=== PATIENT | female | born 1940 | race Caucasian/White ===

== ENCOUNTER 2023-12-19 18:41 | Inpatient (IN) | payer OTHER, SELFPAY ==
[2023-12-19 15:13] VITALS: BP 150/59
--- NOTE | 2023-12-19 15:40 | ED.GENMED ---
History of Present Illness
General
Chief Complaint: Musculo-Skeletal Complaint
Time Seen by Provider: 12/19/23 15:24
Travel History
Have you had any contact with someone who has COVID-19?: No
Do you have any symptoms of coronavirus? Fever > 100 degrees, chills, cough, shortness of breath, sore throat, loss of taste or smell, muscle aches, or headache?: No
History of Present Illness
History of Present Illness:
83-year-old female with history of chronic lymphedema presents to the emergency department for evaluation of worsening redness and pain associated with the left lower extremity. She has a history of recurrent cellulitis to this lower extremity.
Was admitted in July for the same. Denies any fevers or chills. She is been following as an outpatient with wound care and podiatry and states she is supposed to undergo an outpatient 'Doppler ultrasound' due to concern for peripheral arterial
disease.
Past History
Past History
ED Past Medical History: Cancer (thyroid CA), HTN, Hypercholesterolemia, Renal failure (Renal insufficiency), Psychiatric (Anxiety, Panic disorder) and Other (Polio, DVT, anemia, Chronic back pain., C-diff, lymphedema, Bowel obstruction,
Diverticulitis, Cellulitis, )
ED Past Surgical History: Appendectomy, Cholecystectomy, Gynecological ( total Hysterectomy), Orthopedic (Right total knee replacement) and Other (Thyroidectomy)
Social History
Tobacco: Non-smoker
Alcohol: None
Drug: None
Personal:
Living: with family
Employment: Not employed
Family History
Family History: Hypertension
Review of Systems
Review of Systems
Allergies reviewed?: Yes
All Other Systems: ROS reviewed and negative except as documented in HPI and ROS
Phy Exam
Physical Exam
Physical Exam:
GEN: Well appearing, NAD, WDWN
HEENT: Oral mucosa moist, no scleral icterus
Cardiac: Regular rate
Lung: No respiratory distress, no tachypnea
MSK: No gross deformity or injuries
Skin: Good color, no pallor or jaundice. Massive edema of the left lower extremity from the mid thigh through the foot. There is significant erythema of the lower extremity and an excoriated wound to the lateral lower leg with serosanguineous
weeping discharge
Neuro: AO x3, moves all extremities freely
Psych: Calm, cooperative
Course
Orders/Labs/Results
Orders:
Orders
12/19/23 15:40
Venous Doppler Lwr Ext Left [US Perip Venous LOWER Ext LT] Urgent
Comment:
Reason For Exam: LLE edema/pain
12/19/23 15:52
HYDROmorphone [Dilaudid] 0.5 mg IV NOW STA
12/19/23 15:58
Complete Blood Count/With Diff Urgent
Comprehensive Metabolic Panel Urgent
12/19/23 18:06
CeFAZolin 2 GRAM [Ancef] 2 grams in 10 ml IV NOW
Abnormal Lab Results
12/19/23
15:58
RBC 3.54 L 10^6/uL
(4.20-5.40)
Hgb 10.0 L g/dL
(12.0-16.0)
Hct 31.5 L %
(37.0-47.0)
MCHC 31.7 L g/dL
(33.0-37.0)
RDW 15.3 H %
(11.5-14.5)
MPV 11.1 H fL
(7.4-10.4)
Absolute Lymphs (auto) 0.8 L 10^3/uL
(1.2-3.4)
Lymphocytes % 12.6 L %
(20.5-51.1)
Chloride 109 H mmol/L
(98-107)
Carbon Dioxide 21 L mmol/L
(22-30)
BUN 26 H mg/dl
(7-17)
Creatinine 1.4 H mg/dL
(0.6-1.0)
Glucose 107 H mg/dl
(70-99)
12/19/23 15:58
12/19/23 15:58
Vital Signs
Initial and Last Documented VS:
Initial Vital Signs
Temp Pulse Resp BP Pulse Ox
97.5 F 69 18 150/59 100
12/19/23 15:13 12/19/23 15:13 12/19/23 15:13 12/19/23 15:13 12/19/23 15:13
Last Documented Vital Signs
Temp Pulse Resp BP Pulse Ox
97.5 F 69 18 158/62 95
12/19/23 15:13 12/19/23 15:13 12/19/23 15:13 12/19/23 16:52 12/19/23 16:52
MDM/Problems Addressed
MDM/Problems Addressed:
Unclear if truly infected, however marked edema with new pain is suspicious for superimposed infectious etiology. Tolerated cefazolin in the past
*Critical Care Note
Total Time (30-74mins, 75-104mins- exclusive of procedures): Not Applicable
ED Attending Note
-
Portions of this chart may have been created with voice recognition software.� Occasional wrong word or��sound alike� substitutions may have occurred due to the inherent limitations of voice recognition software.
Discharge Plan
Departure
Patient Disposition: Admit
Date of Disposition: 12/19/23
Time of Disposition: 17:53
Presentation/result/management discussed w/ accepting MD/DO: Hospitalist
Discharge Problem:
Cellulitis of left leg, Lymphedema
Prescriptions:
No Action
lovastatin 40 MG tablet
40 mg PO QPM
dexlansoprazole [Dexilant] 30 MG capsule,biphase delayed releas
60 mg PO QPM
hydralazine 10 MG tablet
10 mg PO TID
carvedilol [Coreg] 25 MG tablet
25 mg PO BID
clonidine HCl 0.3 MG tablet
0.3 mg PO TID
furosemide 40 MG tablet
40 mg PO DAILYPRN PRN (Reason: swelling)
levothyroxine 100 MCG tablet
100 mcg PO DAILY AT 0700
ferrous sulfate 325 mg (65 mg iron) Tablet
325 mg PO DAILY
lorazepam 1 mg tablet
1 mg PO HS PRN (Reason: sleep/anxiety)
Patient Comments:
07/29/2023: last filled 06/03/23, [facility]
losartan 100 mg tablet
100 mg PO DAILY
cholecalciferol (vitamin D3) [Vitamin D3] 125 mcg (5,000 unit) Tablet
125 mcg PO DAILY
cephalexin 500 mg capsule
500 mg PO QID 7 Days Qty: 28 0RF
Probiotic 3 billion cell capsule
3,000 mmu cells PO DAILY Qty: 30 0RF
gabapentin 100 mg Capsule
100 mg PO HS Qty: 30 0RF
Referrals:
Joseph Haskins DO [Family Provider] -
Interventions
Interventions:
*Risk Screen - Suicide Last Done: 12/19/23 15:04
*General Assessment Last Done: 12/19/23 15:04
*Neglect/Abuse Screening Last Done: 12/19/23 15:04
*ED COVID-19 Vaccine History Last Done: 12/19/23 15:04
Discharge Date and Time
Print Language: LUXEMBOURGISH
[2023-12-19] MEDS: DILAUDID 0.5 MG IV (16:05)
[2023-12-19 16:06] LABS: % Basophils 0.5 % (0-2); % Eosinophils 2.6 % (0-6); % Immature Granulocytes 0.5 % (0-0.5); % Lymphocytes 12.6 % (20.5-51.1); % Monocytes 8.8 % (1.7-9.3); Absolute Eosinophils 0.2 10^3/uL (0-0.7); Absolute Lymphocytes 0.8 10^3/uL (1.2-3.4); Absolute Monocytes 0.6 10^3/uL (0.1-0.6); Hematocrit 31.5 % (37.0-47.0); Mean Corp Hgb Conc. 31.7 g/dL (33.0-37.0); Mean Corpuscular Hgb 28.2 pg (27.0-31.0); Mean Platelet Volume 11.1 fL (7.4-10.4); Nucleated Red Blood Cells % 0 %; Platelet Count 235 10^3/uL (130-400); Red Blood Cell Count 3.54 10^6/uL (4.20-5.40); Red Cell Dist. Width 15.3 % (11.5-14.5); White Blood Cell Count 6.6 10^3/uL (4.8-10.8)
[2023-12-19 16:28] LABS: ALT (SGPT) < 10 U/L (0-35); AST (SGOT) 17 U/L (14-36); Albumin 3.8 g/dl (3.5-5.0); Alkaline Phosphatase 97 U/L (38-126); Blood Urea Nitrogen 26 mg/dl (7-17); Calcium 9.4 mg/dl (8.4-10.2); Carbon Dioxide 21 mmol/L (22-30); Chloride 109 mmol/L (98-107); Glucose 107 mg/dl (70-99); Potassium 4.3 mmol/L (3.5-5.1); Sodium 141 mmol/L (135-145); Total Bilirubin 0.5 mg/dl (0.2-1.3); Total Protein 6.6 g/dl (6.3-8.2); eGFR 37.33
[2023-12-19 16:52] VITALS: BP 158/62
--- NOTE | 2023-12-19 17:57 | HPS.HSE ---
Family Physician
-
Family Physician: Joseph Haskins
Chief Complaint
History of Present Illness
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
obstruction, diverticulitis, thyroid CA status post thyroidectomy
Impression/plan:
Admit to MedSurg
#Cellulitis left lower extremity
#Chronic left lower extremity lymphedema
Hx LLE DVT
-IV Ancef
-Follow CBC
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
-PT/OT/case management consult
History C. difficile x 2 prior episodes
-Continue Florastor
Essential HTN
-Continue FOUNTAIN MANAGER losartan, hydralazine, Coreg, as needed clonidine
Hypothyroidism
-Continue FOUNTAIN MANAGER Synthroid
Anxiety/panic disorder Hx
Chronic back pain
Other PMH:
History of bowel obstruction
Diverticulitis Hx
Hx thyroid CA status post thyroidectomy
DVT prophylaxis
Subcu Lovenox
Full code
Medical History
Past Medical History
Past Medical History: Reports Other
Additional Past Medical History:
chronic left lower leg lymphedema
cellulitis left lower extremity
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
essential HTN
anxiety/panic disorde
hypothyroidism
chronic back pain
history of bowel obstruction
diverticulitis
thyroid CA status post thyroidectomy
Past Surgical History: Reports Other
Additional Past Surgical History:
thyroid CA status post thyroidectomy
Allergies / Home Medications
Allergies reflects when Allergies were last updated in [employer].
Home Medications with original date entered in [employer]
Physical Exam
Vital Signs
Vital Signs
Temp Pulse Resp BP Pulse Ox
97.5 F 69 18 158/62 95
12/19/23 15:13 12/19/23 15:13 12/19/23 15:13 12/19/23 16:52 12/19/23 16:52
Laboratory Results
-
12/19/23 15:58
12/19/23 15:58
Laboratory Results
Total Bilirubin 0.5 mg/dl (0.2-1.3) 12/19/23 15:58
AST 17 U/L (14-36) 12/19/23 15:58
ALT < 10 U/L (0-35) 12/19/23 15:58
Alkaline Phosphatase 97 U/L (38-126) 12/19/23 15:58
Impression/Plan
-
IMPRESSION:
PLAN:
--- NOTE | 2023-12-19 18:17 | HPS.HSE ---
Family Physician
-
Family Physician: Joseph Haskins
Chief Complaint
-
Left leg weeping and tenderness for few weeks
History of Present Illness
This is a 83-year-old female came from home. Patient is accompanied by her son. Patient complained of left leg getting more swollen with weeping. She also developed more tenderness than usual. She has left lower extremity lymphedema and she has
chronic wound on lateral side of the lower extremity. She gets visiting nurse visit every week. Last visit by nurse advised her to go to the emergency room but she declined. Patient reported that her podiatristDr. Gilman recommended Doppler
ultrasound and was concerned about her left lower extremity 2 weeks ago upon an office visit. Patient denied fever or chills. She reported color of fluid weeping changing to green/yellow in last week or so.
In the emergency room, she did not have leukocytosis or fever.
Medical History
Past Medical History
Past Medical History: Reports Other (HTN, Hypercholesterolemia , prior C. Diff, post polio syndrome, lymphedema, ambulatory dysfunction)
Past Surgical History: Reports Other (No recent major surgery)
Social History
Tobacco: Non-smoker
Alcohol: None
Drug: None
Personal:
Living: With Family
Family History
Family History: Not pertinent
Allergies / Home Medications
Allergies reflects when Allergies were last updated in [employer].
Home Medications with original date entered in [employer]
Allergy/Medication List:
Allergies
Allergy/AdvReac Type Severity Reaction Status Date / Time
clindamycin Allergy c Verified 12/19/23 15:07
diff--recurrent
Penicillins Allergy Hives A Verified 12/19/23 15:07
CHILD,
TOLERATES
CEFEPIME,
KEFLEX
Sulfa (Sulfonamide Allergy A LONG Verified 12/19/23 15:07
Antibiotics) TIME AGO
sulfadiazine Allergy Unknown Verified 12/19/23 15:07
'I am allergic to every Allergy Easily Uncoded 12/19/23 15:07
antibiotic' gets C-diff
Home Medications
lovastatin 40 mg tablet 40 mg PO QPM High cholesterol 10/03/13
dexlansoprazole 30 mg capsule,biphase delayed release (Dexilant) 60 mg PO QPM Gastrointestinal issue 09/24/18
carvedilol 25 mg tablet (Coreg) 25 mg PO BID Blood pressure 05/30/20
clonidine HCl 0.3 mg tablet 0.3 mg PO BID 05/30/20
hydralazine 10 mg tablet 10 mg PO BID Blood pressure 05/30/20
furosemide 40 mg tablet 40 mg PO DAILYPRN PRN swelling 04/09/21
levothyroxine 100 mcg tablet 100 mcg PO DAILY AT 0700 Thyroid 04/09/21
losartan 100 mg tablet 100 mg PO DAILY 07/29/23
acetaminophen 325 mg tablet (Tylenol) 650 mg PO Q4HPRN PRN mild pain 12/19/23
aspirin 81 mg tablet,delayed release 81 mg PO QPM 12/19/23
cholecalciferol (vitamin D3) 25 mcg (1,000 unit) tablet (Vitamin D3) 25 mcg PO DAILY 12/19/23
docusate sodium 100 mg capsule (Colace) 100 mg PO BIDPRN PRN constipation 12/19/23
folic acid 400 mcg tablet 0.4 mg PO DAILY 12/19/23
magnesium hydroxide 400 mg/5 mL oral suspension (Milk of Magnesia) 2,400 mg PO DAILYPRN PRN constipation 12/19/23
Review of Systems
-
History Source: Patient
A 12 point ROS was completed and negative except as noted: Yes
Constitutional: Denies Fever or Chills
EENT: Denies Sore Throat
Respiratory: Denies Hemoptysis
Cardiac: Denies Chest Pain
Abdomen/GI: Denies Abdominal Pain
: Denies Dysuria
Musculoskeletal: Reports Other (Left lower extremity swelling, tenderness, weeping)
Skin: Denies Itching
Neurological: Denies Headache
Endocrine: Denies Temp Intolerance
Hematologic/Lymphatic: Denies Bruising
Psych: Denies Panic Disorder
Physical Exam
Vital Signs
Vital Signs
Temp Pulse Resp BP Pulse Ox
97.5 F 69 18 158/62 95
12/19/23 15:13 12/19/23 15:13 12/19/23 15:13 12/19/23 16:52 12/19/23 16:52
Physical Exam
General: No Apparent Distress and Comfortable
HEENT: Moist mucous membranes and Atraumatic
Respiratory: Clear
Cardiac: S1/S2 and Regular Rhythm
GI: Soft and Non Tender
Rectal: No Maroon Stools
Genito-urinary: No costovertebral tender; No Ponce
Musculoskeletal: No Cyanosis and Edema, Left Lower Extremity (With redness, weeping, lymphedema)
Skin: Warm and Dry
Neuro: AO x 3; No Slurred Speech or Facial Droop
Psych: Calm and Intact Judgment/Insight
Laboratory Results
-
12/19/23 15:58
12/19/23 15:58
Laboratory Results
Total Bilirubin 0.5 mg/dl (0.2-1.3) 12/19/23 15:58
AST 17 U/L (14-36) 12/19/23 15:58
ALT < 10 U/L (0-35) 12/19/23 15:58
Alkaline Phosphatase 97 U/L (38-126) 12/19/23 15:58
Impression/Plan
-
83 years old female presented with increasing left lower extremity swelling, weeping, tenderness
#Weeping cellulitis of left lower extremity
She reported increasing swelling, weeping, tenderness. Chronic erythematous leg.
Met the patient to the hospital
Start the patient on IV Ancef. History of C. difficile in the past. Will do oral vancomycin prophylactically with a probiotic
Blood culture x 2
Monitor temperature curve .no leukocytosis
Patient was concerned about tenderness. She requested oxycodone for pain control
Will continue with Tylenol [id number]
Consult wound care nurse, elevate the leg and Praveen wrap
Appreciate ID input
# Acute kidney injury.
Patient has underlying chronic kidney disease stage II from her previous GFR.
Creatinine 1.4 on admission. Previous creatinine 1.0 in July 2023
Will give mild IV fluid
Do bladder scan to check for retention
Monitor BMP
# Chronic left lower extremity/left foot lymphedema
Patient requested to reach out to her retail selling specialist Dr. De La Fuente
Will check Doppler arterial ultrasound
# HX post polio syndrome chr LLEx weakness--PT/OT
Patient uses walker at home
# Essential HTN-- cont. DEMURRAGE AGENT� losartan, hydralazine, Coreg
# Hypothyroid-- DEMURRAGE AGENT Synthroid
#DVT proph
code status -- FULL CODE
Total time spent to see the patient, examine the patient on the floor, review data and lab results, discuss treatment plan with patient, ER doctor, nursing staff around 75 minutes
[2023-12-19] MEDS: ANCEF 10 IV (18:55)
[2023-12-19 19:15] VITALS: BP 172/77; BMI 31.2
--- NOTE | 2023-12-19 19:30 | PTCARENOTE ---
Received patient from ED. c/o 05/03 pain on Lt lower leg, crying out loud with pain. DEWEY Suarez made aware. see MAR for orders.
[2023-12-19] MEDS: ROXICODONE 5 MG PO ×2 (19:33→23:27)
[2023-12-19] MEDS: TYLENOL 1000 MG PO (20:14)
[2023-12-19] MEDS: COREG 25 MG PO (20:15)
[2023-12-19] MEDS: APRESOLINE 10 MG PO (20:15)
[2023-12-19] MEDS: CATAPRES 0.299999999999999989 MG PO (20:17)
[2023-12-19] MEDS: NSS 1000 IV (20:17)
[2023-12-19] MEDS: FIRVANQ 125 MG PO (20:18)
[2023-12-19] MEDS: HEPARIN 5000 UNITS SC (20:27)
[2023-12-19] MEDS: PROTONIX 40 MG PO (20:47)
[2023-12-19 23:30] VITALS: BP 112/49
[2023-12-20] MEDS: ANCEF 5 IV ×3 (00:08→16:35)
--- NOTE | 2023-12-20 03:00 | PTCARENOTE ---
Patient's has a 'bottle with multiple Meds'. Patient stated its a mix of 'Advil/Tylenol/Dexilant/ tranquilizer'. Patient couldn't remember the name of the sleeping med. sent to pharmacy. As per pharmacy, patient has 8 lorazepam tabs. will keep in
the pharmacy until discharge. updated patient.
--- NOTE | 2023-12-20 03:30 | PTCARENOTE ---
Patient c/o left lower leg pain 10/10 and asking for Tylenol with oxy. Yahir PALOMO made aware. will give 0800am Tylenol now as per advise.
[2023-12-20] MEDS: ROXICODONE 5 MG PO ×4 (03:31→16:34)
[2023-12-20] MEDS: TYLENOL 1000 MG PO ×3 (03:32→21:28)
[2023-12-20] MEDS: SYNTHROID 100 MCG PO (05:30)
[2023-12-20 07:25] LABS: Blood Urea Nitrogen 21 mg/dl (7-17); Calcium 8.4 mg/dl (8.4-10.2); Carbon Dioxide 20 mmol/L (22-30); Chloride 112 mmol/L (98-107); Estimated Creatinine Clearance 39 ml/min; Glucose 100 mg/dl (70-99); Potassium 4.1 mmol/L (3.5-5.1); Sodium 140 mmol/L (135-145); eGFR 49.86
[2023-12-20 07:29] VITALS: BP 136/56
[2023-12-20] MEDS: VISBIOME 2 CAP PO (08:15)
[2023-12-20] MEDS: COREG 25 MG PO ×2 (08:16→19:51)
[2023-12-20] MEDS: CATAPRES 0.299999999999999989 MG PO ×2 (08:16→19:51)
[2023-12-20] MEDS: DESENEX/MITRAZOL/ZEASORB 1 APPLIC TOPICAL ×2 (08:20→19:51)
[2023-12-20] MEDS: HEPARIN 5000 UNITS SC ×2 (08:23→19:51)
[2023-12-20] MEDS: APRESOLINE 10 MG PO ×2 (09:17→19:51)
[2023-12-20] MEDS: FIRVANQ 125 MG PO ×2 (09:26→19:51)
--- NOTE | 2023-12-20 11:23 | CON.ID ---
Consultation
-
Date/Time Consultation Requested: 12/19/23 19:11
Date/Time Consultation Performed: 12/20/23 11:23
Requesting Provider: Dr Clark
Performing Provider: Dr Barcenas
Reason for Consultation: Cellulitis LLE
Chief Complaint / Past History
Chief Complaint
Left leg weeping and tenderness for few weeks
History of Present Illness
Ms Centeno is an 83 year old female with history of ambulatory dysfunction with lympehdema, Post-polio syndrome with LLE weakness, C difficile who presented here yesterday for a chronic wound on the L lower extremity which has developed greenish
drainage in the last week. Denies fevers/chills.
On INSOLVENCY PRACTITIONER protonix with history notable for GERD.
Since arrival here she has been afebrile, bp stable, wbc 6.6, hgb 10.0, plt 235, no left shift, cr 1.1, t bili 0.5, ast 17, alt <10, alk phos 97, US of the lower extremity - no DVT; there is edema. Patient currently on cefazolin and oral
vancomycin. QTc 420. ID is consulted for assistance with management.
Past History
Additional Past Medical History:
HTN, Hypercholesterolemia , prior C. Diff, post polio syndrome, lymphedema, ambulatory dysfunction
Past Surgical History: None
Allergy History:
Reviewed stated allergy history as below:
clindamycin Allergy (Verified 12/19/23 15:07)
c diff--recurrent
Penicillins Allergy (Verified 12/19/23 15:07)
Hives A CHILD, TOLERATES CEFEPIME, KEFLEX
Sulfa (Sulfonamide Antibiotics) Allergy (Verified 12/19/23 15:07)
A LONG TIME AGO
sulfadiazine Allergy (Verified 12/19/23 15:07)
Unknown
'I am allergic to every antibiotic' Allergy (Uncoded 12/19/23 15:07)
Easily gets C-diff
Medications Reviewed: Yes
Social History
Tobacco: Non-Smoker
Alcohol: None
Drug: None
Family History
Family History: Not Pertinent
Review of Systems
Review of Systems
General: Negative Fever or Chills
All systems: All other systems were reviewed and were negative
Vital Signs
Temp Pulse Resp BP Pulse Ox
98.6 F 69 18 136/56 95
12/20/23 07:29 12/20/23 08:16 12/20/23 07:29 12/20/23 08:16 12/20/23 07:29
Physical Exam
Physical Exam
Constitutional: No Acute Distress
Cardiovascular: Regular Rate and S1/S2; Negative Murmur or Rub
Pulmonary: Clear and Symmetric; Negative Wheezes, Rales or Rhonchi
Gastrointestinal: Soft, Non Tender, Non Distended and Normal Bowel Sounds
Musculoskeletal: Other (uncontrolled lymphedema of the L leg with chronic lichenification)
Skin: Warm and Dry; Negative Rash or Jaundice
Wound: Other (maceration of the posterior L leg; DTI of the L heel extending both ventrally and posteriorly )
Psychological: Calm
Lab / Diagnostic Study Results
12/19/23 15:58
12/20/23 06:29
Abs Immat Gran (auto) 0.0 10^3/uL (0-0.05) 12/19/23 15:58
Absolute Neuts (auto) 5.0 10^3/uL (1.4-6.5) 12/19/23 15:58
Absolute Lymphs (auto) 0.8 10^3/uL (1.2-3.4) L 12/19/23 15:58
Absolute Monos (auto) 0.6 10^3/uL (0.1-0.6) 12/19/23 15:58
Absolute Basos (auto) 0.0 10^3/uL (0-0.2) 12/19/23 15:58
Immature Gran % 0.5 % (0-0.5) 12/19/23 15:58
Neutrophils % 75.0 % (42.2-75.2) 12/19/23 15:58
Lymphocytes % 12.6 % (20.5-51.1) L 12/19/23 15:58
Monocytes % 8.8 % (1.7-9.3) 12/19/23 15:58
Eosinophils % 2.6 % (0-6) 12/19/23 15:58
Basophils % 0.5 % (0-2) 12/19/23 15:58
Microbiology Results
Micro:
12/19/23 19:31 Blood Culture - Pending
Blood/Venous
12/19/23 20:11 Blood Culture - Pending
Blood/Venous
12/19/23 22:34 MRSA Screen - Pending
Nose
Assessment / Plan
Cellulitis
Chronic Wound
Post polio syndrome with chronic uncontrolled lymphedema
Chronic back pain
DTI heel
Multiple reported adverse effect to antibiotics, allergy to penicillin
- blood cultures x2 in progresses
- note history of greenish drainage however I do not appreciate any on exam
- agree with cefazolin at this time
- if edema cannot be controlled then resolution may be very slow; I doubt that she will really tolerate either compression or higher elevation today - the skin on the posterior calf is macerated and painful; the DTI is on both the ventral and
posterior heel
- 'I would rather than loose my leg,' expresses great frustration that the wounds are not healing. Expressed that the lymphedema is primary, wounds and infections are secondary. The lymphedema cannot be cured but with management she may need
less healthcare
H/o Recurrent C difficile
- last documented episode on file here was 2011
- stop PPI that was prescribed for GERD - it is associated with higher risk of relapse, if relapse of symptoms then could switch to famotidine
- emphasized need to eat fruits and vegetables (dietary fiber) to support healthy gut biome - admits she doesnt eat vegetables
- agree with probiotics
- BID oral vancomycin while on systemic antibiotics
- if relaspe then we will discuss newer treatments
--- NOTE | 2023-12-20 12:03 | W.PN.HOSP.TC ---
Today's Communication/Plan
-
.
Assessment / Plan
Assessment / Plan
Physical Exam
General: No Apparent Distress and Comfortable
HEENT: Moist mucous membranes and Atraumatic
Respiratory: Clear
Cardiac: S1/S2 and Regular Rhythm
GI: Soft and Non Tender
Rectal: No Maroon Stools
Genito-urinary: No costovertebral tender; No Ponce
Musculoskeletal: No Cyanosis and Edema, Left Lower Extremity (tenderness, swelling)
Skin: Warm and Dry
Neuro: AO x 3; No Slurred Speech or Facial Droop
Psych: Calm and Intact Judgment/Insight.
83 years old female presented with increasing left lower extremity swelling, weeping, tenderness
#Weeping cellulitis of left lower extremity
Same pain, she will go for Doppler study as recommended by her fixture maker
No fevers
c/w IV Abx
Continue to elevate the leg and Praveen wrap
Appreciate ID and wound care input
# Acute kidney injury.
Patient has underlying chronic kidney disease stage II from her previous GFR.
Creatinine 1.4 on admission. Previous creatinine 1.0 in July 2023, creatinine is down to 1.1 post IVF
Monitor BMP
# Chronic left lower extremity/left foot lymphedema
Discussed with Dr. De La Fuente, c/w wound care
Will check Doppler arterial ultrasound
# HX post polio syndrome, chronic LLEx weakness--PT/OT
Patient uses walker at home
# Essential HTN-- cont. PAN SHAKER� losartan, hydralazine, Coreg
# Hypothyroid-- PAN SHAKER Synthroid
#DVT proph
code status -- FULL CODE
Total time spent to see the patient, examine the patient on the floor, review data and lab results, discuss treatment plan with patient, nursing staff around 55 minutes
Anticipated Discharge: > 48 hours
Subjective/Interval History
-
Date of Service: December 20, 2023
She wants to go home
No worsening leg pain
Objective Data
-
Labs:
Laboratory Results
12/20/23
06:29
Sodium 140
Potassium 4.1
Chloride 112 H
Carbon Dioxide 20 L
BUN 21 H
Creatinine 1.1 H
Glucose 100 H
Calcium 8.4
Vital Signs:
Vital Signs
Temp Pulse Resp BP Pulse Ox
98.6 F 69 18 136/56 95
12/20/23 07:29 12/20/23 08:16 12/20/23 07:29 12/20/23 08:16 12/20/23 07:29
I&O
12/19/23 12/20/23 12/21/23
06:59 06:59 06:59
Intake Total 1030 / 1030
Output Total 150 / 150
Balance 880 / 880
--- NOTE | 2023-12-20 13:01 | WOUNDNOTE ---
LEFT LOWER LEG
--- NOTE | 2023-12-20 13:01 | WOUNDNOTE ---
LEFT LATERAL LEG
--- NOTE | 2023-12-20 13:23 | WOUNDNOTE ---
[facility] RN NOTE: Reviewed chart and met with patient. Patient has history of left leg lymphedema. She reports multi-layer compression dressing weekly with VN. Patient admitted with left LE cellulitis, wound and pain. Left leg wound radiates from lateral
to posterior leg and skin is denuded. Left foot with DTI (present on admission). Patient medicated for pain prior to wound care. Wound cleaned with Vashe moistened gauze and covered with Xeroform foam dressing. Left foot off-loaded with pillow under
leg. Patient was in too much pain to turn during assessment. Sacrum to assessed by RN during next position change or transfer. Patient currently on [employer] Accumax. Orders confirmed with hospitalist and RN updated.
--- NOTE | 2023-12-20 15:10 | CM ---
Reviewed chart, patient was not in room therefore called patient's son. Patient's son answered and stated that he could talk. Patient's son stated that patient lives in a one floor condo with one step to enter with her spouse. She uses a walker for
short distances and a w/c for community distances. Patient's spouse assists patient will all of her personal care, bathing, dressing and all ADLs. She can toilet independently. She has a shower chair. Patient's spouse does the majority of the
chicken and fish cleaner, cooking, cleaning and laundry.
Patient does not have VN.
She has been to SNF in the past at [facility].
She has a prescription plan and uses, [facility] in [place] for all of her medications.
Patient's PCP is, Dr. Joseph Haskins.
Patient's son stated that family wants patient to return home when medically stable and not go to a SNF. If PT/OT is indicated they will be agreeable to VN only.
Plan: Case management will continue to follow and assist with discharge planning. Home vrs home with VN services.
[2023-12-20 15:33] VITALS: BMI 31.2
[2023-12-20] MEDS: NSS 1000 IV (15:42)
[2023-12-20 15:45] VITALS: BP 156/65
[2023-12-20] MEDS: ASPIR LOW (ENTERIC COATED) 81 MG PO (16:35)
[2023-12-20 23:00] VITALS: BP 139/57
[2023-12-21] MEDS: MELATONIN 5 MG PO ×2 (00:17→23:32)
[2023-12-21] MEDS: ANCEF 5 IV ×2 (00:18→09:22)
[2023-12-21] MEDS: SYNTHROID 100 MCG PO (05:33)
[2023-12-21] MEDS: ROXICODONE 5 MG PO ×2 (05:36→12:30)
[2023-12-21] MEDS: ZOFRAN 4 MG IV ×2 (06:15→23:33)
--- NOTE | 2023-12-21 06:32 | PTCARENOTE ---
Pt requested 'tranquilizer' at bedtime(normally takes ativan at home). Yahir PALOMO notified and pt med with melatonin. This am pt awake and very anxious-states she wants to go home and feels sick to her stomach. Yahir PALOMO notified and pt med with
zofran for nausea. Stayed with pt and talked to her until she was more calm but she is still anxious. Will continue to monitor.
[2023-12-21 07:30] VITALS: BP 175/77
[2023-12-21] MEDS: VISBIOME 2 CAP PO (08:00)
[2023-12-21] MEDS: COREG 25 MG PO ×2 (08:01→20:51)
[2023-12-21] MEDS: FIRVANQ 125 MG PO ×2 (08:01→20:51)
[2023-12-21] MEDS: APRESOLINE 10 MG PO ×2 (08:01→20:51)
[2023-12-21] MEDS: HEPARIN 5000 UNITS SC ×2 (08:03→20:51)
[2023-12-21] MEDS: TYLENOL 1000 MG PO ×3 (08:04→22:10)
[2023-12-21] MEDS: CATAPRES 0.299999999999999989 MG PO ×2 (08:09→20:51)
[2023-12-21] MEDS: PEPCID 20 MG PO (09:20)
[2023-12-21] MEDS: DESENEX/MITRAZOL/ZEASORB 1 APPLIC TOPICAL ×2 (09:20→20:52)
--- NOTE | 2023-12-21 10:44 | W.PN.HOSP.TC ---
Today's Communication/Plan
-
.
Assessment / Plan
Assessment / Plan
Physical Exam
General: No Apparent Distress and Comfortable
HEENT: Moist mucous membranes and Atraumatic
Respiratory: Clear
Cardiac: S1/S2 and Regular Rhythm
GI: Soft and Non Tender
Rectal: No Maroon Stools
Genito-urinary: No costovertebral tender; No Ponce
Musculoskeletal: No Cyanosis and Edema, Left Lower Extremity (tenderness, much less swelling)
Skin: Warm and Dry
Neuro: AO x 3; No Slurred Speech or Facial Droop
Psych: Calm and Intact Judgment/Insight.
83 years old female presented with increasing left lower extremity swelling, weeping, tenderness
#Weeping cellulitis of left lower extremity
Much less swelling noticed today
No fevers
c/w IV Abx
Continue to elevate the leg and Praveen wrap
Appreciate ID and wound care input
# Hx of C diff
prophylactic Probiotic & oral Vancomycin.
# Left heel pain and non blanchable dark skin, likely pressure injury but no open wound yet
continue to elevate
pt was educated about elevating her leg. She reports that visiting nurse visited once a week and di the dressing. Not sure if pt was doing the appropriate wound care and dressing on her own.
# Acute kidney injury.
Patient has underlying chronic kidney disease stage II from her previous GFR.
Creatinine 1.4 on admission. Previous creatinine 1.0 in July 2023, creatinine is down to 1.1 post IVF
Monitor BMP
# Chronic left lower extremity/left foot lymphedema
Discussed with Dr. De La Fuente, c/w wound care
Doppler did not show critical disease, I recommended OP follow up with vascular.
# HX post polio syndrome, chronic LLEx weakness--PT/OT
Patient uses walker at home
# Essential HTN-- cont. HOME HEALTH ATTENDANT� losartan, hydralazine, Coreg
# Hypothyroid-- HOME HEALTH ATTENDANT Synthroid
#DVT proph
code status -- FULL CODE
Total time spent to see the patient, examine the patient on the floor, review data and lab results, discuss treatment plan with patient, son, nursing staff around 55 minutes
Anticipated Discharge: > 48 hours
Subjective/Interval History
-
Date of Service: December 21, 2023
She wants to go home
no chest pain, no sob
Objective Data
-
Vital Signs:
Vital Signs
Temp Pulse Resp BP Pulse Ox
98.5 F 77 16 175/77 95
12/21/23 07:30 12/21/23 08:09 12/21/23 07:30 12/21/23 08:09 12/21/23 07:30
I&O
12/20/23 12/21/23 12/22/23
06:59 06:59 06:59
Intake Total 1030 / 1030 1320 / 1320
Output Total 150 / 150 350 / 350
Balance 880 / 880 970 / 970
--- NOTE | 2023-12-21 11:52 | PN.CDI ---
Addendum entered and electronically signed by Ye Clark MD 12/21/23 12:06:
Left foot with DTI
I think its already in my note
Original Note:
CDI
- -
CDI:
Physician Documentation Request
Admit Date: 12/19/23 18:41
Dear Doctor Amber,
Please review the following and provide your response in the progress notes.
Clinical Indicators:
- 12/19 Wound note 'Left foot with DTI (present on admission)'
- 12/20 PN 'Chronic left lower extremity/left foot lymphedema'
Physician documentation of the type and location of wounds is required for compliant documentation. Based on the above clinical findings and your assessment, please provide the following in your progress note:
1. Location of the ulcer/wound, including laterality.
2. Type (etiology) of ulcer/wound:
- Diabetic ulcer
- Arterial (ischemic) ulcer
- Traumatic wound
- Venous stasis ulcer
- Pressure (decubitus) ulcer
- Non-healing surgical wound
- Other
- Unable to determine
Use of terms such as suspected, likely, concern for, or probable (associated with a specific diagnosis that is being evaluated, monitored, or treated as if it exists) are acceptable and can be coded in the inpatient setting, when documented at the
time of discharge.
Thank you,
Phoenix Angelo RN
CDI Specialist
Please use your independent medical judgment in providing your response.
*Source: National Pressure Ulcer Advisory Panel (NPUAP)
--- NOTE | 2023-12-21 14:05 | W.PN.ID1 ---
Date of Service
Date of Service: December 21, 2023
Today's Communication
- continue with cefazolin at this time
- MIGDALIA suggestive of multifocal stenoses and aortoiliac inflow disease; consult vascular surgery
- npo at midnight vascular request
- if edema cannot be controlled then resolution may be very slow; I doubt that she will really tolerate either compression or higher elevation today - the skin on the posterior calf is macerated and painful; the DTI is on both the ventral and
posterior heel
- long conversation with patient and adult son, essential that she offloads the left heel, if she develops osteomyelitis of the heel,
- would optimize pain control, ideally would start ranjit wraps as tolerated in the next day or so
Assessment / Plan
Cellulitis
Chronic Wound
Post polio syndrome with chronic, uncontrolled lymphedema
Chronic back pain
DTI heel
Multiple reported adverse effect to antibiotics, allergy to penicillin
- blood cultures x2 in progresses
- continue with cefazolin at this time
- MIGDALIA suggestive of multifocal stenoses and aortoiliac inflow disease; consult vascular surgery
- npo at midnight vascular request
- if edema cannot be controlled then resolution may be very slow; I doubt that she will really tolerate either compression or higher elevation today - the skin on the posterior calf is macerated and painful; the DTI is on both the ventral and
posterior heel
- long conversation with patient and adult son, essential that she offloads the left heel, if she develops osteomyelitis of the heel,
- would optimize pain control, ideally would start ranjit wraps as tolerated in the next day or so
- 'I would rather than loose my leg,' expresses great frustration that the wounds are not healing. Expressed that the lymphedema is primary, wounds and infections are secondary. The lymphedema cannot be cured but with management she may need
less healthcare
- asking about dc, I would not recommend it at this time
H/o Recurrent C difficile
- last documented episode on file here was 2011
- stop PPI that was prescribed for GERD - it is associated with higher risk of relapse, if relapse of symptoms then could switch to famotidine
- emphasized need to eat fruits and vegetables (dietary fiber) to support healthy gut biome - admits she doesnt eat vegetables
- agree with probiotics
- BID oral vancomycin while on systemic antibiotics
- if relapse then we will further discuss newer treatments
Chief Complaint
-: Cellulitis and Other (chronic uncontrolled lymphedema)
Subjective / Review of Systems
afebrile
bp stable
heel resting on the stool on my arrival
anxious
long conversation with patient and son
Vital Signs / Physical Exam
Vital Signs
Vital Signs
Temp Pulse Resp BP Pulse Ox
98.5 F 77 16 175/77 95
12/21/23 07:30 12/21/23 08:09 12/21/23 07:30 12/21/23 08:09 12/21/23 08:34
Physical Exam
Constitutional: No Acute Distress
Cardiovascular: Regular Rate and S1/S2; Negative Murmur or Rub
Pulmonary: Clear and Symmetric; Negative Wheezes or Rales
Gastrointestinal: Soft, Non Tender, Non Distended and Normal Bowel Sounds
Extremities: Other (swelling, erythema of the L leg persists, chronic )
Skin: Warm and Dry; Negative Rash or Jaundice
Objective Data
Lab Data
Lab Results
12/19/23 15:58
12/20/23 06:29
Estimated Creat Clear 39 ml/min 12/20/23 06:29
Total Bilirubin 0.5 mg/dl (0.2-1.3) 12/19/23 15:58
AST 17 U/L (14-36) 12/19/23 15:58
ALT < 10 U/L (0-35) 12/19/23 15:58
Alkaline Phosphatase 97 U/L (38-126) 12/19/23 15:58
Most recent labs reviewed.
Micro Results:
12/19/23 22:34 MRSA Screen - Final
Nose No Methicillin Resistant Staphylococcus aureus isolated.
12/19/23 20:11 Blood Culture - Preliminary
Blood/Venous No Growth in 24 hours- Final report to follow
12/19/23 19:31 Blood Culture - Preliminary
Blood/Venous No Growth in 24 hours- Final report to follow
Care Review
Plan reviewed with: Physician (Dr Reese and Dr Clark - migdalia findings)
[2023-12-21 15:00] VITALS: BP 169/76
--- NOTE | 2023-12-21 16:24 | CM ---
Received notification from [facility] community relations rep that patient wanted to talk to a CM. Met with patient's son who stated that he wanted to see if he could get patient a private room. Spoke with Custom Shop Worker who stated that she would put in request.
[2023-12-21] MEDS: ANCEF 10 IV ×2 (16:57→23:32)
[2023-12-21] MEDS: ASPIR LOW (ENTERIC COATED) 81 MG PO (16:59)
[2023-12-21] MEDS: DULCOLAX 10 MG PO (22:09)
[2023-12-21 23:22] VITALS: BP 127/57
[2023-12-22] MEDS: ROXICODONE 5 MG PO ×2 (03:56→12:06)
[2023-12-22] MEDS: SYNTHROID 100 MCG PO (06:13)
[2023-12-22 07:00] VITALS: BP 192/78
[2023-12-22 07:13] LABS: Hematocrit 27.9 % (37.0-47.0); Hemoglobin 9.3 g/dL (12.0-16.0); Mean Corp Hgb Conc. 33.3 g/dL (33.0-37.0); Mean Corpuscular Hgb 27.9 pg (27.0-31.0); Mean Corpuscular Volume 83.8 fL (81.0-99.0); Mean Platelet Volume 12.1 fL (7.4-10.4); Platelet Count 187 10^3/uL (130-400); Red Blood Cell Count 3.33 10^6/uL (4.20-5.40); Red Cell Dist. Width 15.3 % (11.5-14.5); White Blood Cell Count 4.4 10^3/uL (4.8-10.8)
--- NOTE | 2023-12-22 07:32 | W.PN.UPDATE ---
Update Note
Progress Note Update
Seen and examined with PACKAGE DYE STAND LOADER's. Full consultation to follow. Briefly 83-year-old female with history of hypertension, hyperlipidemia, chronic longstanding left lower extremity lymphedema, history of polio that affected the left lower extremity, who
presents with persistent swelling left calf with excoriation/superficial ulceration of the posterior calf. In addition found to have possible deep tissue injury in the left foot. Patient denies any prior revascularization procedures. She denies
any history of diabetes.
We were asked to evaluate regarding possibility of peripheral arterial disease based on noninvasive imaging.
On exam/she is awake and alert. She is in no acute distress. Breathing is unlabored. Abdomen is soft, nondistended, nontender. Lower extremity with 2+ femoral, popliteal, DP and PT pulses are palpable bilaterally. Relatively equal bilaterally.
Feet are both pink and warm and well-perfused. No rubor. Left posterior calf with superficial excoriation, no rikki overt deep tissue ulcers. Noted in the setting of lymphedema in the left lower extremity. No gross infection but mild cellulitis
surrounding. Left foot is warm, heel with bruised type appearance. No evidence of overt gangrene. No ulceration.
Noninvasive studies reviewed. Bilateral ABIs and TBI's within normal limits. Left lower extremity spectral Doppler waveforms are monophasic throughout left lower extremity.
Plan/ Based on pulse exam, normal MIGDALIA/TBI's, no evidence of significant arterial insufficiency that would preclude wound healing here. Monophasic waveforms throughout the left lower extremity could indicate possible mild common femoral disease or
inflow iliac artery stenosis. However, even if there is (which I am not convinced based on strong pulsations throughout), does not appear to be limiting perfusion at rest based on normal MIGDALIA/TBI's. She should have adequate perfusion for wound
healing. Especially given her mild renal dysfunction, would not pursue enhanced imaging at this point or invasive angiography given low suspicion for this being an ischemic problem. In addition the excoriation areas and the heel do not appear to
be ischemic on exam. Therefore, we rewrapped the left lower extremity after dressing the wounds with Praveen bandage. Recommend continued good compression. Local wound care. Complete course of antibiotics. Heel offloading. And she can follow-up in
the office (we will set her up with appointment) in the next 2 to 4 weeks for close follow-up. If any changes will plan on pursuing angiography. I discussed extensively with the patient. I discussed extensively with her son Marcus over the phone.
--- NOTE | 2023-12-22 07:34 | CON.VAS ---
Consultation
Consultation Request
Performing Provider: Hugh
Reason for Consultation: PAD evaluation
Medical History
-
Chief Complaint: Left lower extremity pain/cellulitis
History of Present Illness:
83-year-old female with past medical history significant for hypertension, hypercholesterolemia, lymphedema admitted for left lower extremity chronic wound with increased drainage/swelling/redness. Patient has visiting nurse weekly who recommended
the ER last week for worsening wound to which patient declined. Patient follows with Dr. Gilman who recommended ultrasound studies as an outpatient. She reported color of fluid weeping changing to green/yellow in last week or so which led to her
ER visit. Patient is noted to also have possible deep tissue injury in the left foot. Patient denies any prior revascularization procedures. She denies any history of diabetes.
We were asked to evaluate regarding possibility of peripheral arterial disease based on noninvasive imaging.
Noninvasive studies reviewed. Bilateral ABIs and TBI's within normal limits. Left lower extremity spectral Doppler waveforms are monophasic throughout left lower extremity.
Patient seen at bedside this a.m. with Dr. Reese.
Past Medical History
Past Medical History: Cancer (thytoid), HTN, Hypercholesterolemia and Other (post polio syndrome, lymphedema, ambulatory dysfunction)
Past Surgical History: Other (Thyroidectomy)
Social History
Tobacco: Non-Smoker
Alcohol: None
Drug: None
Personal:
Living: With Family
Family History
Family History: Reviewed & Not Pertinent
Allergies / Home Medications
Allergy/AdvReac Type Severity Reaction Status Date / Time
clindamycin Allergy c Verified 12/19/23 15:07
diff--recurrent
Penicillins Allergy Hives A Verified 12/19/23 15:07
CHILD,
TOLERATES
CEFEPIME,
KEFLEX
Sulfa (Sulfonamide Allergy A LONG Verified 12/19/23 15:07
Antibiotics) TIME AGO
sulfadiazine Allergy Unknown Verified 12/19/23 15:07
'I am allergic to every Allergy Easily Uncoded 12/19/23 15:07
antibiotic' gets C-diff
�Medication �Instructions �Recorded �Confirmed �Type
lovastatin 40 mg tablet 40 mg PO QPM High cholesterol 10/03/13 12/19/23 History
dexlansoprazole 30 mg 60 mg PO QPM Gastrointestinal issue 09/24/18 12/19/23 History
capsule,biphase delayed release
(Dexilant)
carvedilol 25 mg tablet (Coreg) 25 mg PO BID Blood pressure 05/30/20 12/19/23 History
clonidine HCl 0.3 mg tablet 0.3 mg PO BID Blood Pressure 05/30/20 12/19/23 History
hydralazine 10 mg tablet 10 mg PO BID Blood pressure 05/30/20 12/19/23 History
furosemide 40 mg tablet 40 mg PO DAILYPRN PRN swelling 04/09/21 12/19/23 History
levothyroxine 100 mcg tablet 100 mcg PO DAILY AT 0700 Thyroid 04/09/21 12/19/23 History
losartan 100 mg tablet 100 mg PO DAILY Blood Pressure 07/29/23 12/19/23 History
acetaminophen 325 mg tablet 650 mg PO Q4HPRN PRN mild pain 12/19/23 12/19/23 History
(Tylenol)
aspirin 81 mg tablet,delayed 81 mg PO QPM Blood Clot 12/19/23 12/19/23 History
release Prevention/Tx
cholecalciferol (vitamin D3) 25 25 mcg PO DAILY Supplement 12/19/23 12/19/23 History
mcg (1,000 unit) tablet (Vitamin
D3)
docusate sodium 100 mg capsule 100 mg PO BIDPRN PRN constipation 12/19/23 12/19/23 History
(Colace)
folic acid 400 mcg tablet 0.4 mg PO DAILY Supplement 12/19/23 12/19/23 History
magnesium hydroxide 400 mg/5 mL 2,400 mg PO DAILYPRN PRN 12/19/23 12/19/23 History
oral suspension (Milk of Magnesia) constipation
lorazepam 1 mg tablet 1 mg PO HSPRN PRN SLEEP OR ANXIETY 12/20/23 12/20/23 History
Review of Systems
-
History Source: Patient
All other systems: Negative unless noted
Constitutional: Reports No Symptoms
EENT: Reports No Symptoms
Respiratory: Reports No Symptoms
Cardiac: Reports No Symptoms
Vascular: Denies Leg Pain / Claudication
Abdomen/GI: Reports No Symptoms
: Reports No Symptoms
Musculoskeletal: Reports Edema
Skin: Reports Other (Left lateral weeping skin area)
Neurological: Reports No Symptoms
Endocrine: Reports No Symptoms
Physical Exam
Vital Signs
Temp Pulse Resp BP Pulse Ox
98.5 F 70 18 127/57 95
12/21/23 23:22 12/21/23 23:22 12/21/23 23:22 12/21/23 23:22 12/21/23 23:22
Lab Results
12/22/23 06:13
Physical Exam
General: No Apparent Distress
HEENT: Normocephalic and Atraumatic
Respiratory: Non Labored Respirations
Cardiac: Negative JVD
Breast: Deferred by me
GI: Soft and Non Tender
Musculoskeletal: No Clubbing, No Cyanosis and Edema (Left lower extremity)
Skin: Other (Left posterior calf with superficial excoriation, no rikki overt deep tissue ulcers. Noted in the setting of lymphedema in the left lower extremity. No gross infection but mild cellulitis surrounding. Left foot is warm, heel with
bruised type appearance. No evidence of overt gangrene. No ulcer)
Neuro: Awake, Alert and Oriented
Psych: Calm
Pulses: Bilateral Femoral: +2, Bilateral Popliteal: +2, Bilateral Dorsalis Pedis: +2 and Bilateral Posterior Tibial: +1
Assessment / Plan
-
Plan/ Based on pulse exam, normal MIGDALIA/TBI's, no evidence of significant arterial insufficiency that would preclude wound healing here. Monophasic waveforms throughout the left lower extremity could indicate possible mild common femoral disease or
inflow iliac artery stenosis. However, even if there is (which I am not convinced based on strong pulsations throughout), does not appear to be limiting perfusion at rest based on normal MIGDALIA/TBI's. She should have adequate perfusion for wound
healing. Especially given her mild renal dysfunction, would not pursue enhanced imaging at this point or invasive angiography given low suspicion for this being an ischemic problem. In addition the excoriation areas and the heel do not appear to
be ischemic on exam. Therefore, we rewrapped the left lower extremity after dressing the wounds with Praveen bandage. Recommend continued good compression. Local wound care. Complete course of antibiotics. Heel offloading. And she can follow-up in
the office (we will set her up with appointment) in the next 2 to 4 weeks for close follow-up. If any changes will plan on pursuing angiography. I discussed extensively with the patient. I discussed extensively with her son Marcus over the phone.
Data Reviewed
-
Ultrasound: Discussed with Patient
Labs: Labs Reviewed by me
[2023-12-22 07:45] LABS: ALT (SGPT) < 10 U/L (0-35); AST (SGOT) 22 U/L (14-36); Alkaline Phosphatase 82 U/L (38-126); Blood Urea Nitrogen 16 mg/dl (7-17); Carbon Dioxide 17 mmol/L (22-30); Chloride 115 mmol/L (98-107); Estimated Creatinine Clearance 47 ml/min; Glucose 83 mg/dl (70-99); Potassium 4.3 mmol/L (3.5-5.1); Sodium 141 mmol/L (135-145); Total Bilirubin 0.3 mg/dl (0.2-1.3); Total Protein 5.7 g/dl (6.3-8.2); eGFR > 60.00
[2023-12-22] MEDS: ANCEF 10 IV ×2 (07:47→14:58)
[2023-12-22] MEDS: FIRVANQ 125 MG PO (07:47)
[2023-12-22] MEDS: CATAPRES 0.299999999999999989 MG PO (07:47)
[2023-12-22] MEDS: COREG 25 MG PO (07:48)
[2023-12-22] MEDS: APRESOLINE 10 MG PO (07:48)
[2023-12-22] MEDS: VISBIOME 2 CAP PO (07:48)
[2023-12-22] MEDS: PEPCID 20 MG PO (07:48)
[2023-12-22] MEDS: TYLENOL 1000 MG PO ×2 (07:48→14:58)
[2023-12-22] MEDS: HEPARIN 5000 UNITS SC (07:49)
[2023-12-22] MEDS: DESENEX/MITRAZOL/ZEASORB 1 APPLIC TOPICAL (08:01)
[2023-12-22] MEDS: COMPAZINE 10 MG IV (08:40)
[2023-12-22 11:10] VITALS: BP 139/60; PULSE 70; O2SAT 96
--- NOTE | 2023-12-22 12:01 | W.PN.HOSP.TC ---
Today's Communication/Plan
-
Possible dc
Assessment / Plan
Assessment / Plan
Physical Exam
General: No Apparent Distress and Comfortable
HEENT: Moist mucous membranes and Atraumatic
Respiratory: Clear
Cardiac: S1/S2 and Regular Rhythm
GI: Soft and Non Tender
Rectal: No Maroon Stools
Genito-urinary: No costovertebral tender; No Ponce
Musculoskeletal: No Cyanosis and Edema, Left Lower Extremity (tenderness, much less swelling)
Skin: Warm and Dry
Neuro: AO x 3; No Slurred Speech or Facial Droop
Psych: Calm and Intact Judgment/Insight.
83 years old female presented with increasing left lower extremity swelling, weeping, tenderness
#Weeping cellulitis of left lower extremity
Much less swelling noticed, lessw eeping
No fevers
s/p IV Abx
Continue to elevate the leg and Praveen wrap
Vascular surgery evaluated the patient. No evidence of significant arterial insufficiency.
Appreciate ID, vascular and wound care input
# Hx of C diff
prophylactic Probiotic & oral Vancomycin.
# Left heel pain/deep tissue injury and non blanchable dark skin, secondary to pressure injury but no open wound yet
continue to elevate
pt was educated about elevating her leg. She reports that visiting nurse visited once a week and di the dressing. Not sure if pt was doing the appropriate wound care and dressing on her own.
# Acute kidney injury.
Patient has underlying chronic kidney disease stage II from her previous GFR.
Creatinine 1.4 on admission. Previous creatinine 1.0 in July 2023, creatinine is down to 1.1 post IVF
Monitor BMP
# Chronic left lower extremity/left foot lymphedema
Discussed with Dr. De La Fuente, c/w wound care
Doppler did not show critical disease.
# HX post polio syndrome, chronic LLEx weakness--PT/OT
Gait dysfunction. Patient refuses fpc facility placed
Patient uses walker at home
# Essential HTN-- cont. MECHANICAL TEST TECHNICIAN� losartan, hydralazine, Coreg
# Hypothyroid-- MECHANICAL TEST TECHNICIAN Synthroid
#DVT proph
code status -- FULL CODE
Total time spent to see the patient, examine the patient on the floor, review data and lab results, discuss treatment plan with patient, son, nursing staff around 55 minutes
Anticipated Discharge: Within 24 hours
Subjective/Interval History
-
Date of Service: December 22, 2023
Patient wants to go home, she refuses rehab and does not want to do PT
She compalins of constipation because she does not want to go in the hospital
Objective Data
-
Labs:
Laboratory Results
12/22/23
06:13
WBC 4.4 L
Hgb 9.3 L
Hct 27.9 L
Plt Count 187 D
Sodium 141
Potassium 4.3
Chloride 115 H
Carbon Dioxide 17 L
BUN 16
Creatinine 0.9
Glucose 83
Calcium 9.0
Total Bilirubin 0.3
AST 22
ALT < 10
Alkaline Phosphatase 82
Vital Signs:
Vital Signs
Temp Pulse Resp BP Pulse Ox
97.7 F 79 17 198/80 96
12/22/23 07:00 12/22/23 07:00 12/22/23 07:00 12/22/23 07:47 12/22/23 07:00
I&O
12/21/23 12/22/23 12/23/23
06:59 06:59 06:59
Intake Total 1320 / 1320 900 / 900
Output Total 350 / 350
Balance 970 / 970 900 / 900
[2023-12-22 12:07] VITALS: BP 139/60; PULSE 70; O2SAT 96
[2023-12-22 12:56] VITALS: BP 172/76
--- NOTE | 2023-12-22 13:28 | W.PN.ID1 ---
Date of Service
Date of Service: December 22, 2023
Today's Communication
- switched to keflex for another 7 days
- continue ANYA wraps and offloading of the heel
- reviewed assistive devices with adult son; could get formal fitting at lymphedema center. Offloading essential to preventing further progr
- follow up with podiatry
Assessment / Plan
Cellulitis
Chronic Wounds
DTI of the heel
Post polio syndrome with chronic, uncontrolled lymphedema
Chronic back pain
Multiple reported adverse effect to antibiotics, allergy to penicillin
- blood cultures x2 in progresses no growth to date
- switched to keflex for another 7 days
- continue ANYA wraps and offloading of the heel
- reviewed assistive devices with adult son; could get formal fitting at lymphedema center. Offloading essential to preventing further progr
- follow up with podiatry
H/o Recurrent C difficile
- last documented episode on file here was 2011
- stop PPI that was prescribed for GERD - it is associated with higher risk of relapse, if relapse of symptoms then could switch to famotidine
- emphasized need to eat fruits and vegetables (dietary fiber) to support healthy gut biome - admits she doesnt eat vegetables
- agree with probiotics
- BID oral vancomycin while on systemic antibiotics
- if relapse then we will further discuss newer treatments
Chief Complaint
-: Cellulitis and Other (chronic uncontrolled lymphedema)
Subjective / Review of Systems
afebrile
bp stable
mild leukopenia today
cr further improved
seen by vascular surgery
ANYA wrap in place today
Vital Signs / Physical Exam
Vital Signs
Vital Signs
Temp Pulse Resp BP Pulse Ox
97.7 F 67 17 172/76 96
12/22/23 07:00 12/22/23 12:56 12/22/23 07:00 12/22/23 12:56 12/22/23 07:00
Physical Exam
Constitutional: No Acute Distress
Cardiovascular: Regular Rate and S1/S2; Negative Murmur or Rub
Pulmonary: Clear and Symmetric; Negative Wheezes or Rales
Gastrointestinal: Soft, Non Tender, Non Distended and Normal Bowel Sounds
Extremities: Other (ANYA wrap in place, nearly resolved erythema)
Skin: Warm and Dry; Negative Rash or Jaundice
Neurological: Awake
Objective Data
Lab Data
Lab Results
12/22/23 06:13
12/22/23 06:13
Estimated Creat Clear 47 ml/min 12/22/23 06:13
Total Bilirubin 0.3 mg/dl (0.2-1.3) 12/22/23 06:13
AST 22 U/L (14-36) 12/22/23 06:13
ALT < 10 U/L (0-35) 12/22/23 06:13
Alkaline Phosphatase 82 U/L (38-126) 12/22/23 06:13
Most recent labs reviewed.
Micro Results:
12/19/23 20:11 Blood Culture - Preliminary
Blood/Venous No Growth in 48 hours- Final report to follow
12/19/23 19:31 Blood Culture - Preliminary
Blood/Venous No Growth in 48 hours- Final report to follow
12/19/23 22:34 MRSA Screen - Final
Nose No Methicillin Resistant Staphylococcus aureus isolated.
Care Review
Plan reviewed with: Physician (Dr Clark - jennifer)
--- NOTE | 2023-12-22 13:36 | W.DCSUMMARY ---
Discharge Summary
Discharge Data
Date of Admission: 12/19/23
Date of Discharge: 12/22/23
-
Pending Results: No
Hospital Course
83 years old female with past medical history significant for hypertension, hypercholesterolemia, lymphedema admitted for left lower extremity chronic wound with increased drainage, swelling and redness. Patient has visiting nurse weekly who
recommended to be evaluate dn the emergency room last week for worsening swelling but patient declined. Patient followed with Dr. Gilman who recommended ultrasound studies as an outpatient. Patient was diagnosed with weeping cellulitis. Patient
was noted to also have deep tissue injury in the left heel without open wound. Patient did not have fevers or leukocytosis. She received intravenous antibiotic and was evalauted by infectious diseases specification consultant. Left foot was warm, no evidence of
overt gangrene and no ulceration. She had ultrasound and it showed bilateral ankle brachial index and toe brachial index within normal limits. Left lower extremity spectral Doppler waveforms were monophasic throughout left lower extremity. Patient
was counseled educated regarding the importance of treating and controlling lymphedema with limb elevation, compression dressings. She verbalized understanding. Instructions were given to the family also. Patient was evaluated by vascular
surgery. Patient had no evidence of significant arterial insufficiency and recommended to continue with compression dressing, local wound care and heel offloading. Patient was advised to follow-up with wound care nurse, her support manager and vascular
surgery in the outpatient setting. She was given oral antibiotics to finish the course at home. She remained hemodynamically stable. Patient was evaluated by physical therapy and patient declined fpc facility placement and wanted to
go home. She was discharged home in a stable condition with home health services.
Physical Exam
General: No Apparent Distress and Comfortable
HEENT: Moist mucous membranes and Atraumatic
Respiratory: Clear
Cardiac: S1/S2 and Regular Rhythm
GI: Soft and Non Tender
Rectal: No Maroon Stools
Genito-urinary: No costovertebral tender; No Ponce
Musculoskeletal: No Cyanosis and Edema, Left Lower Extremity (no tenderness, much less swelling)
Skin: Warm and Dry
Neuro: AO x 3; No Slurred Speech or Facial Droop
Psych: Calm and Intact Judgment/Insight.
Total discharge time spent to see the patient, examine the patient on the floor, review data and lab results, discuss discharge plan with patient, son Marcus, consultants, Podiatry, nursing staff around 65 minutes
Discharge Plan
-
Patient Disposition: Home with Home Care
Discharge Diagnosis/Procedures: Cellulitis of left lower extremity.
Chronic Wound/ swelling left calf with excoriation/superficial ulceration of the posterior calf with lymphedema.
You were seen by infectious diseases specification consultant, vascular senior project controls specialist. Your support manager Dr. Palumbo was updated.
You received intravenous antibiotic, wound care. Continue to elevate the leg and dressing of left lower extremity we recommend continue with good compression, Left heel offloading.
Diet: As tolerated
Activity Restrictions/Additional Instructions:
Wound Care Instructions Please medicate patient for pain prior to wound care. Left Leg Wound- Apply Vashe moistened gauze to open areas for 5 minutes. Cover open areas with Xeroform gauze, ABD and geovanna. Change daily and PRN drainage.
Left Foot DTI-Keep foot off-loaded on pillow or air cushion
Follow up at wound care center call for an appointment.
Referrals:
Joseph Haskins, DO [Family Provider] - in one to two weeks
Gloria Gonsales CRNP [Specified Professional Personl] - 01/12/24 8:45 am (Vascular follow-up)
Prescriptions:
New
cephalexin 500 mg capsule
500 mg PO QID 7 Days Qty: 28 0RF
Rx Instructions:
Patient tolerated cephalosporins in the hospital
vancomycin 125 mg capsule
125 mg PO BID Qty: 14 0RF
Rx Instructions:
Prophylactic use
Probiotic 3 billion cell capsule
3,000 mmu cells PO DAILY Qty: 7 0RF
Rx Instructions:
Can use alternative brand
Continued
lovastatin 40 MG tablet
40 mg PO QPM
hydralazine 10 MG tablet
10 mg PO BID
carvedilol [Coreg] 25 MG tablet
25 mg PO BID
clonidine HCl 0.3 MG tablet
0.3 mg PO BID
furosemide 40 MG tablet
40 mg PO DAILYPRN PRN (Reason: swelling)
levothyroxine 100 MCG tablet
100 mcg PO DAILY AT 0700
losartan 100 mg tablet
100 mg PO DAILY
acetaminophen [Tylenol] 325 mg Tablet
650 mg PO Q4HPRN PRN (Reason: mild pain)
folic acid 400 mcg Tablet
0.4 mg PO DAILY
aspirin 81 mg Tablet,Delayed Release (Dr/Ec)
81 mg PO QPM
magnesium hydroxide [Milk of Magnesia] 400 mg/5 mL Suspension
2,400 mg PO DAILYPRN PRN (Reason: constipation)
docusate sodium [Colace] 100 mg Capsule
100 mg PO BIDPRN PRN (Reason: constipation)
cholecalciferol (vitamin D3) [Vitamin D3] 25 mcg (1,000 unit) Tablet
25 mcg PO DAILY
lorazepam 1 mg tablet
1 mg PO HSPRN PRN (Reason: SLEEP OR ANXIETY)
Discontinued
dexlansoprazole [Dexilant] 30 MG capsule,biphase delayed releas
60 mg PO QPM
Discharge Orders:
Discharge Patient (As Directed); Ordered 12/22/23
Ordered By: Ye Clark
Discharge Date and Time
Discharge Date/Time: 12/22/23 17:13
Print Language: YAKUT
--- NOTE | 2023-12-22 14:47 | CM ---
Spoke with patient's RN who stated that patient is asking to be discharged. Discharge order in. Placed referral to [facility] for resumption of care.
Plan: Case management will continue to follow and assist with discharge planning. [facility] sent.
[2023-12-22 15:49] VITALS: BP 169/78
== END 2023-12-22 17:13 | disposition home health service (06) | DRG 603 ==
LOC: 3 WEST ACU 18:41
PROVIDERS: Physician Assistant; ADMITTING PHYSICIAN Internal Medicine; EMERGENCY PHYSICIAN Emergency Medicine; FAMILY PHYSICIAN Family Medicine; OTHER PHYSICIAN Nurse Practitioner Acute Care; OTHER PHYSICIAN Student in an Organized Health Care Education/Training Program
DX: L03.116 Cellulitis of left lower limb (principal); N17.9 Acute kidney failure, unspecified; L97.229 Non-pressure chronic ulcer of left calf with unspecified severity; D64.9 Anemia, unspecified; E78.00 Pure hypercholesterolemia, unspecified; F41.0 Panic disorder [episodic paroxysmal anxiety]; G89.29 Other chronic pain; N18.2 Chronic kidney disease, stage 2 (mild); I12.9 Hypertensive chronic kidney disease with stage 1 through stage 4 chronic kidney disease, or unspecified chronic kidney disease; E89.0 Postprocedural hypothyroidism; G14 Postpolio syndrome; R60.0 Localized edema; I89.0 Lymphedema, not elsewhere classified; K21.9 Gastro-esophageal reflux disease without esophagitis; L89.626 Pressure-induced deep tissue damage of left heel; R26.2 Difficulty in walking, not elsewhere classified; M54.9 Dorsalgia, unspecified; Z96.651 Presence of right artificial knee joint; Z86.718 Personal history of other venous thrombosis and embolism; Z86.12 Personal history of poliomyelitis; Z87.19 Personal history of other diseases of the digestive system; Z90.710 Acquired absence of both cervix and uterus; Z90.49 Acquired absence of other specified parts of digestive tract; Z79.890 Hormone replacement therapy; Z86.19 Personal history of other infectious and parasitic diseases; Z88.1 Allergy status to other antibiotic agents; Z88.0 Allergy status to penicillin; Z88.2 Allergy status to sulfonamides
CPT/HCPCS: 80048; 80053; 85025; 85027; 87040; 87070; 93922; 93925; 93971; 96374; 97162; 97166; 99285

== ENCOUNTER 2024-02-28 12:16 | Inpatient (IN) | payer OTHER, SELFPAY ==
[2024-02-26] VITALS (16 sets, daily range): BP systolic 146–251; BP diastolic 68–181; BMI 29.7
[2024-02-26 17:38] LABS: % Basophils 0.3 % (0-2); % Immature Granulocytes 0.4 % (0-0.5); % Lymphocytes 7.5 % (20.5-51.1); % Monocytes 1.9 % (1.7-9.3); % Neutrophils 89.9 % (42.2-75.2); Absolute Immature Granulocytes 0.1 10^3/uL (0-0.05); Absolute Lymphocytes 0.9 10^3/uL (1.2-3.4); Absolute Monocytes 0.2 10^3/uL (0.1-0.6); Absolute Neutrophils 11.2 10^3/uL (1.4-6.5); Hematocrit 38.4 % (37.0-47.0); Hemoglobin 12.8 g/dL (12.0-16.0); Mean Corp Hgb Conc. 33.3 g/dL (33.0-37.0); Mean Corpuscular Hgb 27.4 pg (27.0-31.0); Mean Corpuscular Volume 82.1 fL (81.0-99.0); Mean Platelet Volume 10.9 fL (7.4-10.4); Nucleated Red Blood Cells % 0 %; Platelet Count 340 10^3/uL (130-400); Red Blood Cell Count 4.68 10^6/uL (4.20-5.40); Red Cell Dist. Width 15.3 % (11.5-14.5); White Blood Cell Count 12.5 10^3/uL (4.8-10.8)
[2024-02-26 17:44] LABS: Urine Albumin 3+ (Neg - Trace); Urine Bilirubin Negative (Negative); Urine Character Clear (Clear); Urine Color Yellow; Urine Glucose 1+ (Negative); Urine Ketone 1+ (Negative); Urine Leukocyte Negative (Negative); Urine Nitrite Negative (Negative); Urine Occult Blood 1+ (Negative); Urine Specific Gravity 1.015 (<1.030); Urine Urobilinogen Negative (Neg - 1+)
[2024-02-26 17:51] LABS: Urine White Cell 0-2 /HPF (0-5)
[2024-02-26 17:53] LABS: ALT (SGPT) 22 U/L (0-35); AST (SGOT) 39 U/L (14-36); Albumin 5.3 g/dl (3.5-5.0); Alkaline Phosphatase 124 U/L (38-126); Blood Urea Nitrogen 15 mg/dl (7-17); Calcium 10.6 mg/dl (8.4-10.2); Carbon Dioxide 24 mmol/L (22-30); Chloride 104 mmol/L (98-107); Estimated Creatinine Clearance 38 ml/min; Glucose 164 mg/dl (70-99); Lipase 39 U/L (23-300); Sodium 142 mmol/L (135-145); Total Bilirubin 1.1 mg/dl (0.2-1.3); Total Protein 8.3 g/dl (6.3-8.2); eGFR 49.86
[2024-02-26] MEDS: ZOFRAN 4 MG IV ×2 (17:53→18:38)
[2024-02-26] MEDS: PROTONIX IV 80 MG IV (17:56)
[2024-02-26] MEDS: NSS 1000 IV (17:57)
[2024-02-26] MEDS: APRESOLINE 10 MG IV ×2 (19:11→22:06)
[2024-02-26] MEDS: REGLAN 10 MG IV (19:25)
--- NOTE | 2024-02-26 19:44 | ED.GENMED ---
History of Present Illness
<Jesse Goncalves Jr., PA-C - Last Filed: 02/26/24 22:56>
General
Chief Complaint: Abdominal Symptoms
Source: patient and family
Exam Limitations: none
Time Seen by Provider: 02/26/24 17:35
Nursing documentation reviewed up to this point in time: agreed with
History of Present Illness
History of Present Illness:
83-year-old female with past medical history of hypertension hyperlipidemia previous polio previous bowel obstruction presenting to the emergency department today with concerns of nausea and vomiting over the past 24 hours. She has not been able to
take her medications as well. Denies abdominal pain chest pain shortness of breath changes in bowel movements or diarrhea.
Past History
<Tyrone Vegas DO - Last Filed: 02/26/24 19:56>
Past History
ED Past Medical History: Cancer (thyroid CA), HTN, Hypercholesterolemia, Renal failure (Renal insufficiency), Psychiatric (Anxiety, Panic disorder) and Other (Polio, DVT, anemia, Chronic back pain., C-diff, lymphedema, Bowel obstruction,
Diverticulitis, Cellulitis, )
ED Past Surgical History: Appendectomy, Cholecystectomy, Gynecological ( total Hysterectomy), Orthopedic (Right total knee replacement) and Other (Thyroidectomy)
Social History
Tobacco: Non-smoker
Alcohol: None
Drug: None
Personal:
Living: with family
Employment: Not employed
Family History
Family History: Hypertension
Review of Systems
<Jesse Goncalves Jr., PA-C - Last Filed: 02/26/24 22:56>
Review of Systems
Allergies reviewed?: Yes
All Other Systems: ROS reviewed and negative except as documented in HPI and ROS
Phy Exam
<Jesse Goncalves Jr., PA-C - Last Filed: 02/26/24 22:56>
Physical Exam
Physical Exam:
GENERAL: Alert , retching
EYE: pupils equal and reactive
NECK: Supple, no significant adenopathy.
ENT: o/p clr, mmm.
CARDIAC: Regular rate and rhythm .
LUNGS: Clear breath sounds bilaterally, no acute respiratory distress, no wheezes/rales/rhonchi
ABDOMEN: Soft, without focal tenderness, no r/g, no cvat
NEUROLOGICAL: Alert and oriented, no focal neuro deficits
SKIN: Warm and dry, skin intact.
MUSCULOSKELETAL: No edema, well perfused.
PSYCH: Normal and appropriate interaction.
Course
<Jesse Goncalves Jr., PA-C - Last Filed: 02/26/24 22:56>
Orders/Labs/Results
Orders:
Orders
02/26/24 17:28
Complete Blood Count/With Diff Urgent
Comprehensive Metabolic Panel Urgent
Lipase Urgent
Urinalysis Reflex To Culture Urgent
Date Specimen was Collected: 02/26/24
Time Specimen was Collected: 17:27
Urine Microscopic Reflex Cult Urgent
02/26/24 17:51
Ondansetron Injectable [Zofran] 4 mg .ROUTE .STK-MED ONE
02/26/24 17:52
Ondansetron Injectable [Zofran] 4 mg IV NOW STA
Pantoprazole [Protonix IV] 80 mg .ROUTE .STK-MED ONE
02/26/24 17:56
Pantoprazole [Protonix IV] 80 mg IV NOW STA
02/26/24 17:57
0.9% Sodium Chloride 1000 ml [Nss] 1,000 ml IV BOLUS
02/26/24 18:22
EKG [Electrocardiogram (*1)] Urgent
Reason for Study: Abdominal Pain
02/26/24 18:23
Electrocardiogram (*1) Urgent
Reason for Study: Fatigue / Weakness
EKG- Treatment ONCE
02/26/24 18:25
EKG- Treatment ONCE
02/26/24 18:37
Ondansetron Injectable [Zofran] 4 mg .ROUTE .STK-MED ONE
02/26/24 18:38
Ondansetron Injectable [Zofran] 4 mg IV NOW STA
02/26/24 19:08
HydrALAZINE [Apresoline] 10 mg IV NOW STA
02/26/24 19:22
Metoclopramide [Reglan] 10 mg IV NOW STA
02/26/24 19:27
CT Abd/Pel (IV only)-DH only Urgent
Comment:
Reason For Exam: abd pain vomiting
02/26/24 19:40
Diphenhydramine [Benadryl] 25 mg IV NOW STA
02/26/24 19:41
Diphenhydramine [Benadryl] 50 mg .ROUTE .STK-MED ONE
02/26/24 19:51
Lorazepam [Ativan] 1 mg IV NOW STA
Lorazepam [Ativan] 2 mg .ROUTE .STK-MED ONE
02/26/24 21:54
HydrALAZINE [Apresoline] 10 mg IV NOW STA
02/26/24 22:20
Labetalol HCl [Trandate] 10 mg IV NOW STA
02/26/24 22:21
Clonidine [Catapres] 0.3 mg PO NOW STA
Abnormal Lab Results
02/26/24
17:28
WBC 12.5 H 10^3/uL
(4.8-10.8)
RDW 15.3 H %
(11.5-14.5)
MPV 10.9 H fL
(7.4-10.4)
Abs Immat Gran (auto) 0.1 H 10^3/uL
(0-0.05)
Absolute Neuts (auto) 11.2 H 10^3/uL
(1.4-6.5)
Absolute Lymphs (auto) 0.9 L 10^3/uL
(1.2-3.4)
Neutrophils % 89.9 H %
(42.2-75.2)
Lymphocytes % 7.5 L %
(20.5-51.1)
Creatinine 1.1 H mg/dL
(0.6-1.0)
Glucose 164 H mg/dl
(70-99)
Calcium 10.6 H mg/dl
(8.4-10.2)
AST 39 H U/L
(14-36)
Total Protein 8.3 H g/dl
(6.3-8.2)
Albumin 5.3 H g/dl
(3.5-5.0)
Urine Ketones 1+ A
(Negative)
Ur Occult Blood Reflex 1+ A
(Negative)
Urine RBC 3-6 A /HPF
(0-2)
Urine Glucose 1+ A
(Negative)
Urine Albumin (Reflex) 3+ A
(Neg - Trace)
02/26/24 17:28
02/26/24 17:28
Vital Signs
Initial and Last Documented VS:
Initial Vital Signs
Pulse Resp Pulse Ox
70 17 97
02/26/24 17:14 02/26/24 17:14 02/26/24 17:14
Last Documented Vital Signs
Temp Pulse Resp BP Pulse Ox
98.6 F 106 21 146/106 96
02/26/24 17:22 02/26/24 22:45 02/26/24 22:45 02/26/24 22:45 02/26/24 22:30
Cindylt;Tyrone Vegas, DO - Last Filed: 02/26/24 19:56>
Orders/Labs/Results
Orders:
Orders
02/26/24 17:28
Complete Blood Count/With Diff Urgent
Comprehensive Metabolic Panel Urgent
Lipase Urgent
Urinalysis Reflex To Culture Urgent
Date Specimen was Collected: 02/26/24
Time Specimen was Collected: 17:27
Urine Microscopic Reflex Cult Urgent
02/26/24 17:51
Ondansetron Injectable [Zofran] 4 mg .ROUTE .STK-MED ONE
02/26/24 17:52
Ondansetron Injectable [Zofran] 4 mg IV NOW STA
Pantoprazole [Protonix IV] 80 mg .ROUTE .STK-MED ONE
02/26/24 17:56
Pantoprazole [Protonix IV] 80 mg IV NOW STA
02/26/24 17:57
0.9% Sodium Chloride 1000 ml [Nss] 1,000 ml IV BOLUS
02/26/24 18:22
EKG [Electrocardiogram (*1)] Urgent
Reason for Study: Abdominal Pain
02/26/24 18:23
Electrocardiogram (*1) Urgent
Reason for Study: Fatigue / Weakness
EKG- Treatment ONCE
02/26/24 18:25
EKG- Treatment ONCE
02/26/24 18:37
Ondansetron Injectable [Zofran] 4 mg .ROUTE .STK-MED ONE
02/26/24 18:38
Ondansetron Injectable [Zofran] 4 mg IV NOW STA
02/26/24 19:08
HydrALAZINE [Apresoline] 10 mg IV NOW STA
02/26/24 19:22
Metoclopramide [Reglan] 10 mg IV NOW STA
02/26/24 19:27
CT Abd/Pel (IV only)-DH only Urgent
Comment:
Reason For Exam: abd pain vomiting
02/26/24 19:40
Diphenhydramine [Benadryl] 25 mg IV NOW STA
02/26/24 19:41
Diphenhydramine [Benadryl] 50 mg .ROUTE .STK-MED ONE
02/26/24 19:51
Lorazepam [Ativan] 1 mg IV NOW STA
Lorazepam [Ativan] 2 mg .ROUTE .STK-MED ONE
02/26/24 21:54
HydrALAZINE [Apresoline] 10 mg IV NOW STA
02/26/24 22:20
Labetalol HCl [Trandate] 10 mg IV NOW STA
02/26/24 22:21
Clonidine [Catapres] 0.3 mg PO NOW STA
Abnormal Lab Results
02/26/24
17:28
WBC 12.5 H 10^3/uL
(4.8-10.8)
RDW 15.3 H %
(11.5-14.5)
MPV 10.9 H fL
(7.4-10.4)
Abs Immat Gran (auto) 0.1 H 10^3/uL
(0-0.05)
Absolute Neuts (auto) 11.2 H 10^3/uL
(1.4-6.5)
Absolute Lymphs (auto) 0.9 L 10^3/uL
(1.2-3.4)
Neutrophils % 89.9 H %
(42.2-75.2)
Lymphocytes % 7.5 L %
(20.5-51.1)
Creatinine 1.1 H mg/dL
(0.6-1.0)
Glucose 164 H mg/dl
(70-99)
Calcium 10.6 H mg/dl
(8.4-10.2)
AST 39 H U/L
(14-36)
Total Protein 8.3 H g/dl
(6.3-8.2)
Albumin 5.3 H g/dl
(3.5-5.0)
Urine Ketones 1+ A
(Negative)
Ur Occult Blood Reflex 1+ A
(Negative)
Urine RBC 3-6 A /HPF
(0-2)
Urine Glucose 1+ A
(Negative)
Urine Albumin (Reflex) 3+ A
(Neg - Trace)
02/26/24 17:28
02/26/24 17:28
Vital Signs
Initial and Last Documented VS:
Initial Vital Signs
Pulse Resp Pulse Ox
70 17 97
02/26/24 17:14 02/26/24 17:14 02/26/24 17:14
Last Documented Vital Signs
Temp Pulse Resp BP Pulse Ox
98.6 F 106 21 146/106 96
02/26/24 17:22 02/26/24 22:45 02/26/24 22:45 02/26/24 22:45 02/26/24 22:30
<Jesse Goncalves Jr., PA-C - Last Filed: 02/26/24 22:56>
MDM/Problems Addressed
MDM/Problems Addressed:
83-year-old female presenting to the emergency department today with concerns of vomiting over the past 24 hours. On arrival here blood pressure is elevated she did miss for different blood pressure medications over the past 24 hours she was given
dose of hydralazine here to help with. Additional labs showing slight white count of 12.5 otherwise no significant emergent findings. EKG nonischemic. Patient was given Zofran still with ongoing symptoms with additional given a dose of Reglan.
Patient still with ongoing symptoms, additionally gave dose of Ativan having some improvement still unable to tolerate by mouth plan to admit considering this. Additionally blood pressure elevated was given dose of hydralazine with some improvement
labetalol with further improvement to the 140s.
<Jesse Goncalves Jr., PA-C - Last Filed: 02/26/24 22:56>
*Critical Care Note
Total Time (30-74mins, 75-104mins- exclusive of procedures): Not Applicable
ED Attending Note
<Tyrone Vegas DO - Last Filed: 02/26/24 19:56>
ED Attending Note
Patient seen and examined by attending physician: Yes
I performed the substantive portion of visit, reviewed & personally made and approve the management plan that is documented in note by myself or FRIEDA.: Yes
ED Attending Note:
Seen with PA examined independently agree with assessment and plan persistent nausea vomiting blood pressure up he has not taken her meds in a few days still nauseous and vomiting after Zofran for some Ativan
Will see how she responds consideration for advanced imaging. Will admission
-
Portions of this chart may have been created with voice recognition software.� Occasional wrong word or��sound alike� substitutions may have occurred due to the inherent limitations of voice recognition software.
Discharge Plan
Departure
Patient Disposition: Admit
Date of Disposition: 02/26/24
Time of Disposition: 22:56
Admit to: Med/Surg
Admit to doctor: Jasmeet
Presentation/result/management discussed w/ accepting MD/DO: Hospitalist
Patient with high blood pressure during this ER visit?: No
Condition: Good
Covid-19: Not Applicable
Discharge Problem:
Vomiting
Prescriptions:
No Action
lovastatin 40 MG tablet
40 mg PO QPM
hydralazine 10 MG tablet
10 mg PO BID
carvedilol [Coreg] 25 MG tablet
25 mg PO BID
clonidine HCl 0.3 MG tablet
0.3 mg PO BID
furosemide 40 MG tablet
40 mg PO DAILYPRN PRN (Reason: swelling)
levothyroxine 100 MCG tablet
100 mcg PO DAILY AT 0700
losartan 100 mg tablet
100 mg PO DAILY
acetaminophen [Tylenol] 325 mg Tablet
650 mg PO Q4HPRN PRN (Reason: mild pain)
folic acid 400 mcg Tablet
0.4 mg PO DAILY
aspirin 81 mg Tablet,Delayed Release (Dr/Ec)
81 mg PO QPM
magnesium hydroxide [Milk of Magnesia] 400 mg/5 mL Suspension
2,400 mg PO DAILYPRN PRN (Reason: constipation)
docusate sodium [Colace] 100 mg Capsule
100 mg PO BIDPRN PRN (Reason: constipation)
cholecalciferol (vitamin D3) [Vitamin D3] 25 mcg (1,000 unit) Tablet
25 mcg PO DAILY
lorazepam 1 mg tablet
1 mg PO HSPRN PRN (Reason: SLEEP OR ANXIETY)
cephalexin 500 mg capsule
500 mg PO QID 7 Days Qty: 28 0RF
Rx Instructions:
Patient tolerated cephalosporins in the hospital
vancomycin 125 mg capsule
125 mg PO BID Qty: 14 0RF
Rx Instructions:
Prophylactic use
Probiotic 3 billion cell capsule
3,000 mmu cells PO DAILY Qty: 7 0RF
Rx Instructions:
Can use alternative brand
Referrals:
UNKNOWN - PT DOES,NOT KNOW [Family Provider] -
Interventions
Interventions:
*Risk Screen - Suicide Last Done: 02/26/24 17:22
*Neglect/Abuse Screening Last Done: 02/26/24 17:22
ED- Fall Risk Assessment Last Done: 02/26/24 17:22
HE-Xadndy-Hmaejofhjh Assessment Last Done: 02/26/24 17:22
Discharge Date and Time
Print Language: ROMANSH
[2024-02-26] MEDS: ATIVAN 1 MG IV (19:52)
[2024-02-26] MEDS: TRANDATE 10 MG IV (22:33)
[2024-02-26] MEDS: CATAPRES 0.3 MG PO (22:45)
--- NOTE | 2024-02-26 23:54 | HPS.HSE ---
Family Physician
-
Family Physician: NOT KNOW UNKNOWN - PT DOES
Chief Complaint
-
N/V/Abd Pain x 2 days
History of Present Illness
83yo F with PMH HTN/HLD, Thyroid Ca, Cdiff, Diverticulitis, Hypothyroidism, Post-Polio Syndrome with LLE weakness, LLE Lymphedema, Anxiety/Depression presents to ER with complaint of N/V/abdominal pain. History severe limited as pt is lethargic s/p
ativan administration in ER. I attempted to call both sons Marcus And Michael on file without success. Nurse does report pt had a single episode of coffee ground emesis on arrival. Now resting comfortably but lethargic. ROS unattainable.
ER course: Presents profoundly hypertensive BP 247/107 -> 166/68, HR 88-106, RR 14-22. WBC 12.5K, Hgb 12.8 g/dL. BUN/Cr 15/1.1. BG 164, Lipase 39. LFTs wnl. UA (-). S/P 1LNS, Benadryl 25mg IV, Ativan 1mg IV, Zofran 4mg IV x2, Reglan 10mg IV,
Catapres 0.3mg x 1, Hydralazine 10mg IV x2, Labetalol 10mg IV in ER.
CT a/p:
Markedly limited study as a result of several factors including lack of oral contrast, beam hardening artifact from the patient's left upper extremity and patient motion artifact.
No intestinal obstruction, findings to suggest bilateral obstructive uropathy or free air.
Urinary bladder significantly limited by beam hardening artifact from right hip arthroplasty.
Small bilateral low-attenuation renal lesions only the larger of which can be confirmed as simple cysts. 1.9 cm slightly low attenuation left renal lesion either a complex/proteinaceous cyst or low attenuation solid mass, cannot be differentiated on
the basis of this study.
Small pericardial effusion versus pericardial thickening.
Medical History
Past Medical History
Past Medical History: Reports Other ( Cancer (thyroid CA), HTN, Hypercholesterolemia, Renal failure (Renal insufficiency), Psychiatric (Anxiety, Panic disorder) and Other (Polio, DVT, anemia, Chronic back pain., C-diff, lymphedema, Bowel
obstruction, Diverticulitis, Cellulitis))
Past Surgical History: Reports Other ( Appendectomy, Cholecystectomy, Gynecological ( total Hysterectomy), Orthopedic (Right total knee replacement) and Other (Thyroidectomy))
Social History
Tobacco: Non-smoker
Alcohol: None
Drug: None
Personal:
Living: With Family
Family History
Family History: Hypertension
Allergies / Home Medications
Allergies reflects when Allergies were last updated in [employer].
Home Medications with original date entered in [employer]
Allergy/Medication List:
Allergies
Allergy/AdvReac Type Severity Reaction Status Date / Time
clindamycin Allergy c Verified 02/26/24 17:11
diff--recurrent
Penicillins Allergy Hives A Verified 02/26/24 17:11
CHILD,
TOLERATES
CEFEPIME,
KEFLEX
Sulfa (Sulfonamide Allergy A LONG Verified 02/26/24 17:11
Antibiotics) TIME AGO
sulfadiazine Allergy Unknown Verified 02/26/24 17:11
'I am allergic to every Allergy Easily Uncoded 02/26/24 17:11
antibiotic' gets C-diff
Home Medications
lovastatin 40 mg tablet 40 mg PO QPM High cholesterol 10/03/13
carvedilol 25 mg tablet (Coreg) 25 mg PO BID Blood pressure 05/30/20
clonidine HCl 0.3 mg tablet 0.3 mg PO BID Blood Pressure 05/30/20
hydralazine 10 mg tablet 10 mg PO BID Blood pressure 05/30/20
furosemide 40 mg tablet 40 mg PO DAILYPRN PRN swelling 04/09/21
levothyroxine 100 mcg tablet 100 mcg PO DAILY AT 0700 Thyroid 04/09/21
losartan 100 mg tablet 100 mg PO DAILY Blood Pressure 07/29/23
acetaminophen 325 mg tablet (Tylenol) 650 mg PO Q4HPRN PRN mild pain 12/19/23
aspirin 81 mg tablet,delayed release 81 mg PO QPM Blood Clot Prevention/Tx 12/19/23
cholecalciferol (vitamin D3) 25 mcg (1,000 unit) tablet (Vitamin D3) 25 mcg PO DAILY Supplement 12/19/23
docusate sodium 100 mg capsule (Colace) 100 mg PO BIDPRN PRN constipation 12/19/23
folic acid 400 mcg tablet 0.4 mg PO DAILY Supplement 12/19/23
magnesium hydroxide 400 mg/5 mL oral suspension (Milk of Magnesia) 2,400 mg PO DAILYPRN PRN constipation 12/19/23
lorazepam 1 mg tablet 1 mg PO HSPRN PRN SLEEP OR ANXIETY 12/20/23
cephalexin 500 mg capsule 500 mg PO QID 7 days #28 caps 12/22/23
lactobacillus combination no.4 3 billion cell capsule (Probiotic) 3,000 mmu cells PO DAILY Anti-inflammatory #7 caps 12/22/23
vancomycin 125 mg capsule 125 mg PO BID #14 caps 12/22/23
If medication reconciliation has not been performed, why?: Unresponsive and Other (Will require formal reconciliation in AM - unable to get in touch with family. )
Review of Systems
-
Unable to obtain full review of systems at this time due to: Other (encephalopathy)
A 12 point ROS was completed and negative except as noted: Yes
Physical Exam
Vital Signs
Vital Signs
Temp Pulse Resp BP Pulse Ox
98.6 F 95 22 166/68 96
02/26/24 17:22 02/26/24 23:30 02/26/24 23:30 02/26/24 23:00 02/26/24 22:30
Physical Exam
General: Well Developed, Well Nourished and No Apparent Distress
HEENT: NormoCephalic, Moist mucous membranes and Atraumatic
Respiratory: Clear
Cardiac: S1/S2, Regular Rhythm and Murmur
GI: Soft, Non Tender, Non Distended and Normal Bowel Sounds; No Organomegaly
Rectal: Deferred by Provider
Musculoskeletal: No Clubbing, No Cyanosis and Edema, Left Upper Extremity (2-3+ with venous stasis changes. )
Skin: Warm and Dry; No Rash
Neuro: Other (Drousy. AOx0. Awakens to loud verbal and tactile stimuli. Pupils 3mm equal and reactive. Chronic LLE weakness. )
Laboratory Results
-
02/26/24 17:28
02/26/24 17:
Laboratory Results
Total Bilirubin 1.1 mg/dl (0.2-1.3) 02/26/24 17:
AST 39 U/L (14-36) H 02/26/24 17:
ALT 22 U/L (0-35) 02/26/24 17:
Alkaline Phosphatase 124 U/L (38-126) 02/26/24 17:
Lipase 39 U/L (23-300) 02/26/24 17:28
Data Reviewed
-
Diagnostic Radiology: Image Personally Visualized and interpreted
CT Scan: Image Personally Visualized and interpreted
Medical Tests (Nuc Med, Echo, EKG etc): Image Personally Visualized and interpreted (NSR @ 72bpm, PACs, TWI I-AVL, QTC 475ms. No change from 12/19/22 or 04/09/21. )
Lab Data: Labs Reviewed by me
Old Records: Reviewed
Impression/Plan
-
N/V/Abdominal Pain
- Pt presents with 2 day complaint of N/V/Abd pain. Unable to obtain further history following ativan administration
- Appears resolved following BP reduction
- CT a/p:
Markedly limited study as a result of several factors including lack of oral contrast, beam hardening artifact from the patient's left upper extremity and patient motion artifact.
No intestinal obstruction, findings to suggest bilateral obstructive uropathy or free air.
Urinary bladder significantly limited by beam hardening artifact from right hip arthroplasty.
Small bilateral low-attenuation renal lesions only the larger of which can be confirmed as simple cysts. 1.9 cm slightly low attenuation left renal lesion either a complex/proteinaceous cyst or low attenuation solid mass, cannot be differentiated on
the basis of this study.
Small pericardial effusion versus pericardial thickening.
- LFTs largely wnl. Lipase wnl
- UA wnl
- Check COVID for completeness
- Continue supportive care with IVF and antiemetics.
Uncontrolled HTN
- BP 247/107 at peak in ER, improved to 166/68 s/p Labetalol 10mg IV, Hydralazine 10mg IVx2, Catapres 0.3mg x1 in ER
- Unclear whether n/v/pain provoked hypertension or vice versa
- Cont home regimen of coreg, clonidine, hydralazine, losartan. Prn lasix for edema
- Goal 25% reduction in first 24 hrs
Leukocytosis
- WBC 12.5K. Likely reactive from N/V/Pain
- CT a/p without acute findings
- UA without evidence of infection
- Trend AM cbc off abx.
Renal Lesion
- CT reviewed: Small bilateral low-attenuation renal lesions only the larger of which can be confirmed as simple cysts. 1.9 cm slightly low attenuation left renal lesion either a complex/proteinaceous cyst or low attenuation solid mass, cannot be
differentiated on the basis of this study.
- Patient may require repeat imaging with repeat CT vs MRI
- suspect this can be done on outpatient basis.
LLE Lymphedema
- No obvious concern for infection at this time
- Continue ranjit-wrap
- wound care consult
- Cont prn lasix
Post-Polio Syndrome
Chronic LLE Weakness
- Chronic Gait dysfunction and LLE weakness
- Has refused [facility] facility in past
- Uses walker at home
Hypothyroidism - Check TSH. Continue home synthroid.
Anxiety/Depression
- Continue home ativan prn
Diet: Full liquids, ADAT
DVT Ppx: Lovenox
Code Status: Full Code
[2024-02-27] VITALS (10 sets, daily range): BP systolic 98–131; BP diastolic 43–86; PULSE 67–70; O2SAT 94; BMI 29.2
[2024-02-27] MEDS: LR 1000 IV (02:29)
--- NOTE | 2024-02-27 04:29 | PTCARENOTE ---
Pt. arrived to unit from ED via stretcher. Pt. very drowsy upon arrival. Patient pulled over from stretcher to bed in 329. Pt. falling asleep while answering questions. Chronic lymphedema noted to LLE. Oriented to unit. Call quinones within reach. Plan
of care ongoing.
[2024-02-27] MEDS: SYNTHROID 100 MCG PO (05:47)
[2024-02-27] MEDS: TYLENOL 650 MG PO (05:54)
[2024-02-27 08:16] LABS: % Basophils 0.3 % (0-2); % Eosinophils 0.1 % (0-6); % Immature Granulocytes 0.4 % (0-0.5); % Lymphocytes 11.8 % (20.5-51.1); % Monocytes 10.8 % (1.7-9.3); % Neutrophils 76.6 % (42.2-75.2); Absolute Lymphocytes 1.2 10^3/uL (1.2-3.4); Absolute Monocytes 1.1 10^3/uL (0.1-0.6); Absolute Neutrophils 7.9 10^3/uL (1.4-6.5); Hematocrit 31.2 % (37.0-47.0); Hemoglobin 10.4 g/dL (12.0-16.0); Mean Corp Hgb Conc. 33.3 g/dL (33.0-37.0); Mean Corpuscular Volume 83.9 fL (81.0-99.0); Mean Platelet Volume 11.4 fL (7.4-10.4); Nucleated Red Blood Cells % 0 %; Platelet Count 282 10^3/uL (130-400); Red Blood Cell Count 3.72 10^6/uL (4.20-5.40); Red Cell Dist. Width 15.4 % (11.5-14.5); White Blood Cell Count 10.3 10^3/uL (4.8-10.8)
[2024-02-27 08:25] LABS: Blood Urea Nitrogen 22 mg/dl (7-17); Calcium 9.4 mg/dl (8.4-10.2); Carbon Dioxide 20 mmol/L (22-30); Chloride 108 mmol/L (98-107); Estimated Creatinine Clearance 30 ml/min; Glucose 109 mg/dl (70-99); Magnesium 1.9 mg/dl (1.6-2.3); Potassium 3.4 mmol/L (3.5-5.1); Sodium 139 mmol/L (135-145); eGFR 37.33
[2024-02-27] MEDS: COREG 25 MG PO ×2 (08:38→21:11)
[2024-02-27] MEDS: APRESOLINE 10 MG PO ×2 (08:38→21:10)
[2024-02-27] MEDS: VITAMIN D3 (cholecalciferol) 25 MCG PO (08:38)
[2024-02-27] MEDS: VISBIOME 1 CAP PO (08:38)
[2024-02-27] MEDS: FOLVITE 0.4 MG PO (08:38)
[2024-02-27] MEDS: COZAAR 100 MG PO (08:38)
[2024-02-27] MEDS: PROTONIX IV 40 MG IV (08:39)
[2024-02-27 09:00] LABS: TSH Reflex To Free T4 0.21 uIU/ml (0.47-4.68)
[2024-02-27] MEDS: CATAPRES 0.3 MG PO ×2 (09:01→21:10)
[2024-02-27 09:59] LABS: Free T4 1.57 ng/dl (0.78-2.19)
[2024-02-27 10:08] LABS: COVID-19 Antigen Negative (Negative)
--- NOTE | 2024-02-27 10:15 | W.PN.HOSP.TC ---
Today's Communication/Plan
-
patient anxious for discharge. I advanced diet. will give small bolus and repeat BMP at 3PM to ensure renal function improving
Assessment / Plan
Assessment / Plan
Ms. Carmen Centeno is a 83 yo woman with hx HTN/HLD, Thyroid Ca, Cdiff, Diverticulitis, Hypothyroidism, Post-Polio Syndrome with LLE weakness, LLE Lymphedema, Anxiety/Depression presents to ER with complaint of N/V/abdominal pain. She had
witnessed coffee ground emesis.
Abdomen/Pelvis CT
IMPRESSION:
Markedly limited study as a result of several factors including lack of oral contrast, beam hardening artifact from the patient's left upper extremity and patient motion artifact.
No intestinal obstruction, findings to suggest bilateral obstructive uropathy or free air.
Urinary bladder significantly limited by beam hardening artifact from right hip arthroplasty.
Small bilateral low-attenuation renal lesions only the larger of which can be confirmed as simple cysts. 1.9 cm slightly low attenuation left renal lesion either a complex/proteinaceous cyst or low attenuation solid mass, cannot be differentiated on
the basis of this study.
Small pericardial effusion versus pericardial thickening.
N/V/Abdominal Pain
- Pt presents with 24 hours significant abdominal discomfort and vomiting which is now largely resolved
- CT without obstruction or perforation
- LFTs largely wnl. Lipase wnl
- UA wnl, patient also complained of urinary incontinence that is now resolved
Constipation seen on CT
-chronic issue for patient
she takes milk of magnesia at home and prefers to only treat herself at home
CALVIN
-creatinine 1.4
-will give small bolus and recheck this afternoon
Uncontrolled HTN
- BP 247/107 at peak in ER, improved to 166/68 s/p Labetalol 10mg IV, Hydralazine 10mg IVx2, Catapres 0.3mg x1 in ER
- Unclear whether n/v/pain provoked hypertension or vice versa
- Cont home regimen of coreg, clonidine, hydralazine, losartan. Prn lasix for edema
- Goal 25% reduction in first 24 hrs
Leukocytosis
- WBC 12.5K. Likely reactive from N/V/Pain
- CT a/p without acute findings
- UA without evidence of infection
- Trend AM cbc off abx.
Renal Lesion
- CT reviewed: Small bilateral low-attenuation renal lesions only the larger of which can be confirmed as simple cysts. 1.9 cm slightly low attenuation left renal lesion either a complex/proteinaceous cyst or low attenuation solid mass, cannot be
differentiated on the basis of this study.
- Patient may require repeat imaging with repeat CT vs MRI
- suspect this can be done on outpatient basis.
LLE Lymphedema
- No obvious concern for infection at this time
- Continue ranjit-wrap
- wound care consult
- Cont prn lasix
Post-Polio Syndrome
Chronic LLE Weakness
- Chronic Gait dysfunction and LLE weakness
- Has refused longterm facility in past
- Uses walker at home
-PT
Hypothyroidism - Check TSH. Continue home synthroid.
Anxiety/Depression
- Continue home ativan prn
Diet: Full liquids, ADAT
DVT Ppx: Lovenox
Code Status: Full Code
Anticipated Discharge: Within 24 hours
Subjective/Interval History
-
Date of Service: February 27, 2024
patient woke up feeling a lot better
anxious to go home
denies pain
no nausea or vomiting
she only wants to treat constipation at home
Objective Data
-
Labs:
Laboratory Results
02/27/24
07:42
WBC 10.3
Hgb 10.4 L
Hct 31.2 L
Plt Count 282
Sodium 139
Potassium 3.4 L
Chloride 108 H
Carbon Dioxide 20 L
BUN 22 H
Creatinine 1.4 H
Glucose 109 H
Calcium 9.4
Vital Signs:
Vital Signs
Temp Pulse Resp BP Pulse Ox
97.7 F 79 16 131/58 96
02/27/24 07:00 02/27/24 07:00 02/27/24 07:00 02/27/24 07:00 02/27/24 07:00
I&O
02/26/24 02/27/24 02/28/24
06:59 06:59 06:59
Intake Total 400 / 400
Balance 400 / 400
Review of Systems
-
History Source: Patient
All other systems: Reviewed and negative
Physical Exam
-
General: No Apparent Distress
HEENT: PERRLA
Respiratory: Clear to Auscultation; Negative Wheezes
Cardiac: Regular Rhythm and S1/S2
GI: Soft and Nontender
Musculoskeletal: No Edema
Skin: Warm and Dry; Negative Rash
Neuro: AO x 3
Psych: Calm
Data Reviewed
-
Diagnostic Radiology: Report Reviewed by me
Labs: Labs Reviewed by me
[2024-02-27] MEDS: NSS 500 IV (11:09)
--- NOTE | 2024-02-27 12:33 | CM ---
Addendum entered by Candi Duarte 02/27/24 15:11:
Referral for JW with [facility] placed in Care Port
Plan - anticipate home with [facility] when medically stable
Original Note:
CM met with pt and her son, Michael at bedside
Pt reports she lives with her in a 1 story home. 1 step to enter
Pt reports she needs some assist with daily activities. She and share transformation lead. Family is nearby and can assist as needed.
Will have ride home at d/c
DME - rolling walker and wheel chair
SNF - past - [facility]
HH - current with [facility] - lymphedema
PCP - Dr Joseph Haskins
Pharm - [facility]
Plan - anticipate home with [facility]
--- NOTE | 2024-02-27 15:09 | WOUNDNOTE ---
L CALF (LATERAL POSTERIOR)
--- NOTE | 2024-02-27 15:11 | WOUNDNOTE ---
[facility] RN note: Patient admitted with abdominal pain. Patient lives with family. She is current with [facility].
See H&P for complete history.
PMH: HTN, C diff, diverticulitis, post polio syndrome, LLE weakness, LLE lymphedema, anxiety/depression, thyroid ca, renal insufficiency, DVT, chronic back pain.
Wound Location and type/assessment: Patient admitted with: No wounds. Skin discolored and fragile L posterior calf. +Hemosiderosis. Trace -+1 LLE edema. +Pedal pulses. Patient uses L knee high compression with Coban applied by VN or Praveen wraps. L
heel blanchable red.
Appetite: fair.
Pressure redistribution devices in place: [employer] Accumax. Patient moves self in bed. She ambulates with walker.
Plan: Coban wrap removed. Skin cleansed with saline, Vaseline applied. L knee high Praveen wrap applied. Elevate heels off bed with air chair cushion.
Will confirm orders with hospitalist and updated nurse.
Care plan to be updated, will sign off. Call if needed.
[2024-02-27 15:58] LABS: Blood Urea Nitrogen 28 mg/dl (7-17); Calcium 9.2 mg/dl (8.4-10.2); Carbon Dioxide 24 mmol/L (22-30); Chloride 106 mmol/L (98-107); Estimated Creatinine Clearance 22 ml/min; Glucose 126 mg/dl (70-99); Potassium 3.8 mmol/L (3.5-5.1); Sodium 137 mmol/L (135-145); eGFR 25.88
--- NOTE | 2024-02-27 16:19 | W.PN.UPDATE ---
Addendum entered and electronically signed by Judie Leahy MD 02/27/24 16:24:
*hold [employer] Losartan
Original Note:
Update Note
Progress Note Update
creatinine up to 1.9. got worse post bolus. patient does not appear volume overloaded. per son she is with minimal PO intake.
-differential includes persistent hypovolemia/ATN versus effect from contrast (although < 24 hours)
-obtain urine studies
-renal US
-renal consult tomorrow AM if creatinine continues to climb
[2024-02-27] MEDS: LIPITOR 10 MG PO (18:04)
[2024-02-27] MEDS: LOVENOX 40 MG SC (18:04)
[2024-02-27] MEDS: ASPIR LOW (ENTERIC COATED) 81 MG PO (18:04)
[2024-02-27 19:32] LABS: Urine Sodium 118 mmol/L (30-90)
[2024-02-27] MEDS: ATIVAN 1 MG PO (22:57)
[2024-02-28] MEDS: SYNTHROID 100 MCG PO (05:28)
[2024-02-28 05:31] VITALS: BMI 29.1
[2024-02-28 07:52] VITALS: BP 119/61
[2024-02-28] MEDS: FOLVITE 0.4 MG PO (08:12)
[2024-02-28] MEDS: VISBIOME 1 CAP PO (08:12)
[2024-02-28] MEDS: VITAMIN D3 (cholecalciferol) 25 MCG PO (08:12)
[2024-02-28] MEDS: CATAPRES 0.3 MG PO ×2 (08:13→20:10)
[2024-02-28] MEDS: COREG 25 MG PO (08:13)
[2024-02-28] MEDS: APRESOLINE 10 MG PO (08:13)
[2024-02-28] MEDS: HYDROPHOR 1 APPLIC TOPICAL (08:14)
[2024-02-28] MEDS: PROTONIX IV 40 MG IV (08:15)
[2024-02-28] MEDS: NSS (PRESERVATIVE FREE) 10 ML IV (08:24)
[2024-02-28 09:25] LABS: Blood Urea Nitrogen 34 mg/dl (7-17); Calcium 9.2 mg/dl (8.4-10.2); Carbon Dioxide 22 mmol/L (22-30); Chloride 108 mmol/L (98-107); Estimated Creatinine Clearance 18 ml/min; Glucose 92 mg/dl (70-99); Potassium 3.5 mmol/L (3.5-5.1); Sodium 138 mmol/L (135-145); eGFR 20.57
[2024-02-28] MEDS: NSS 1000 IV (09:44)
--- NOTE | 2024-02-28 09:58 | W.PN.HOSP.TC ---
Today's Communication/Plan
-
bolus now
CXR
renal US
renal consult
hold home BP meds (clonidine with hold parameters)
Assessment / Plan
Assessment / Plan
Ms. Carmen Centeno is a 83 yo woman with hx HTN/HLD, thyroid Ca, Cdiff, Diverticulitis, Hypothyroidism, Post-Polio Syndrome with LLE weakness, LLE Lymphedema, Anxiety/Depression presents to ER with complaint of N/V/abdominal pain. She had
witnessed coffee ground emesis.
Abdomen/Pelvis CT
IMPRESSION:
Markedly limited study as a result of several factors including lack of oral contrast, beam hardening artifact from the patient's left upper extremity and patient motion artifact.
No intestinal obstruction, findings to suggest bilateral obstructive uropathy or free air.
Urinary bladder significantly limited by beam hardening artifact from right hip arthroplasty.
Small bilateral low-attenuation renal lesions only the larger of which can be confirmed as simple cysts. 1.9 cm slightly low attenuation left renal lesion either a complex/proteinaceous cyst or low attenuation solid mass, cannot be differentiated on
the basis of this study.
Small pericardial effusion versus pericardial thickening.
N/V/Abdominal Pain
- Pt presents with 24 hours significant abdominal discomfort and vomiting which is now resolved
- CT without obstruction or perforation
- LFTs largely wnl. Lipase wnl
- UA wnl, patient also complained of urinary incontinence that is now resolved
CALVIN
-creatinine 1.1 on admit now 2.3 - getting worse with fluids although patient appears dry and had low BP this AM. may be related to contrast given in ER
-urine studies with urine sodium 118
-hypotensive post AM meds - ordered bolus
-holding [employer] Losartan (did not receive this AM)
-renal US
-CXR
-Renal consult
Constipation seen on CT
-chronic issue for patient
she takes milk of magnesia at home and prefers to only treat herself at home
Essential HTN
-was hypertensive in ER now hypotensive this morning after AM meds
-hold [employer] Losartan, Coreg, Hydralazine
-continue [employer] DES[employer] Clonidine with hold parameters
Leukocytosis
- WBC 12.5K. Likely reactive from N/V/Pain
- CT a/p without acute findings
- UA without evidence of infection
- resolved without antibiotics
Renal Lesion
- CT reviewed: Small bilateral low-attenuation renal lesions only the larger of which can be confirmed as simple cysts. 1.9 cm slightly low attenuation left renal lesion either a complex/proteinaceous cyst or low attenuation solid mass, cannot be
differentiated on the basis of this study.
- discussed with radiology - can obtain CT with/without contrast using renal mass protocol if patient refuses MRI (MRI with/without contrast most helpful) - to be done as outpatient
LLE Lymphedema
- No obvious concern for infection at this time
- Continue ranjit-wrap
- wound care consult
Post-Polio Syndrome
Chronic LLE Weakness
- Chronic Gait dysfunction and LLE weakness
- Has refused longterm facility in past
- Uses walker at home
-PT - HH
Hypothyroidism - Check TSH. Continue home synthroid.
Anxiety/Depression
- Continue home ativan prn
Diet: LRD
DVT Ppx: Lovenox
Code Status: Full Code
51 minutes spent on patient evaluation, medical decision making, coordination of care
Anticipated Discharge: > 48 hours
Subjective/Interval History
-
Date of Service: February 28, 2024
patient felt short of breath and dizzy this morning, low BP after morning meds
Objective Data
-
Labs:
Laboratory Results
02/28/24
08:12
Sodium 138
Potassium 3.5
Chloride 108 H
Carbon Dioxide 22
BUN 34 H
Creatinine 2.3 H
Glucose 92
Calcium 9.2
Vital Signs:
Vital Signs
Temp Pulse Resp BP Pulse Ox
97.7 F 69 17 116/61 96
02/28/24 07:52 02/28/24 08:13 02/28/24 07:52 02/28/24 08:13 02/28/24 07:52
I&O
02/27/24 02/28/24 02/29/24
06:59 06:59 06:59
Intake Total 610 / 610
Balance 610 / 610
Review of Systems
-
History Source: Patient
All other systems: Reviewed and negative
Physical Exam
-
General: No Apparent Distress
HEENT: PERRLA
Respiratory: Clear to Auscultation; Negative Wheezes
Cardiac: Regular Rhythm and S1/S2
GI: Soft and Nontender
Musculoskeletal: No Edema
Skin: Warm and Dry; Negative Rash
Neuro: AO x 3
Psych: Calm
Data Reviewed
-
Diagnostic Radiology: Report Reviewed by me
Labs: Labs Reviewed by me
[2024-02-28] MEDS: NSS 500 IV (10:03)
[2024-02-28 11:27] VITALS: BP 114/50; BP 123/49; PULSE 59; O2SAT 94
--- NOTE | 2024-02-28 14:36 | W.CON.NEPH ---
Consultation
-
Date/Time Consultation Requested: 02/28/2024 9:48AM
Date/Time Consultation Performed: 02/28/2024 2:37PM
Requesting Provider: Judie Leahy
Performing Provider: Sasha Loomis
Reason for Consultation: CALVIN
Medical History
-
Chief Complaint: CALVIN
History of Present Illness:
Ms. Centeno is an 83YOF with PMH of HTN/DLD, thyroid cancer, cdiff, diverticulitis, hypothyroidism, post-polio syndrome with LLE weakness, LLE lymphedema,anxiety/depression who presented to the ER with nausea and vomiting. She was admitted after an
episode of coffee ground emesis. She states that her nausea and vomiting is better. She also endorses that she was peeing more than usual prior to coming in.
The patient endorses being followed by a freelance displayer in the outpatient setting of CKD. She states that her GFR is usually in the 50s. She does endrose that she has a history of significant NSAID usage, did take a dose prior to coming to the
hospital. She did have a dose of contrast in the ER as well. Her blood pressures are noted to be very labile during this hospitalization.
Her Cr was 1.1 on admission, now elevated to 2.3. Patient was given fluids this AM. urine studies do note a Na 118. Of note, patient was found to have ?renal cysts vs. mass on CT A/P.
Past Medical History
Thyroid cancer
HTN
Hypercholesterolemia
chronic kidney disease
anxiety
post polio syndrome
chronic back pain
C-diff
lymphedema
bowel obstruction
diverticulitis
cellulitis
Past Surgical History: Appendectomy, Cholecystectomy, Gynecological (total hysterectomy), Orthopedic and Other (thyroidectomy)
Social History
Tobacco: Non-Smoker
Alcohol: None
Drug: None
Personal:
Living: With Family
Family History
Family History: Not Pertinent
Allergies / Home Medications
Allergy/AdvReac Type Severity Reaction Status Date / Time
clindamycin Allergy c Verified 02/26/24 17:11
diff--recurrent
Penicillins Allergy Hives A Verified 02/26/24 17:11
CHILD,
TOLERATES
CEFEPIME,
KEFLEX
Sulfa (Sulfonamide Allergy A LONG Verified 02/26/24 17:11
Antibiotics) TIME AGO
sulfadiazine Allergy Unknown Verified 02/26/24 17:11
'I am allergic to every Allergy Easily Uncoded 02/26/24 17:11
antibiotic' gets C-diff
�Medication �Instructions �Recorded �Confirmed �Type
lovastatin 40 mg tablet 40 mg PO QPM High cholesterol 10/03/13 02/27/24 History
carvedilol 25 mg tablet (Coreg) 25 mg PO BID Blood pressure 05/30/20 02/27/24 History
clonidine HCl 0.3 mg tablet 0.3 mg PO BID Blood Pressure 05/30/20 02/27/24 History
hydralazine 10 mg tablet 10 mg PO BID Blood pressure 05/30/20 02/27/24 History
levothyroxine 100 mcg tablet 100 mcg PO DAILY AT 0700 Thyroid 04/09/21 02/27/24 History
losartan 100 mg tablet 100 mg PO DAILY Blood Pressure 07/29/23 02/27/24 History
acetaminophen 325 mg tablet 650 mg PO Q4HPRN PRN mild pain 12/19/23 02/27/24 History
(Tylenol)
cholecalciferol (vitamin D3) 25 25 mcg PO DAILY Supplement 12/19/23 02/27/24 History
mcg (1,000 unit) tablet (Vitamin
D3)
docusate sodium 100 mg capsule 100 mg PO BIDPRN PRN constipation 12/19/23 02/27/24 History
(Colace)
magnesium hydroxide 400 mg/5 mL 2,400 mg PO DAILYPRN PRN 12/19/23 02/27/24 History
oral suspension (Milk of Magnesia) constipation
lorazepam 1 mg tablet 1 mg PO HSPRN PRN SLEEP OR ANXIETY 12/20/23 02/27/24 History
Review of Systems
-
History Source: Patient and Family
All other systems: Negative unless noted
: Incontinence
Neurological: Dizzy
Physical Exam
Vital Signs
Vital Signs
Temp Pulse Resp BP Pulse Ox
97.7 F 69 17 116/61 96
02/28/24 07:52 02/28/24 08:13 02/28/24 07:52 02/28/24 08:13 02/28/24 07:52
Lab Results
WBC 10.3 10^3/uL (4.8-10.8) 02/27/24 07:42
RBC 3.72 10^6/uL (4.20-5.40) L 02/27/24 07:42
Hgb 10.4 g/dL (12.0-16.0) L 02/27/24 07:42
Hct 31.2 % (37.0-47.0) L 02/27/24 07:42
Plt Count 282 10^3/uL (130-400) 02/27/24 07:42
Sodium 138 mmol/L (135-145) 02/28/24 08:12
Potassium 3.5 mmol/L (3.5-5.1) 02/28/24 08:12
Chloride 108 mmol/L (98-107) H 02/28/24 08:12
Carbon Dioxide 22 mmol/L (22-30) 02/28/24 08:12
BUN 34 mg/dl (7-17) H 02/28/24 08:12
Creatinine 2.3 mg/dL (0.6-1.0) H 02/28/24 08:12
eGFR 20.57 02/28/24 08:12
Glucose 92 mg/dl (70-99) 02/28/24 08:12
Calcium 9.2 mg/dl (8.4-10.2) 02/28/24 08:12
Albumin 5.3 g/dl (3.5-5.0) H 02/26/24 17:28
Physical Exam
General: AOx3, No Distress and Nontoxic
HEENT: PERRL, EOMI, Anicteric, Conjunctivae Clear, Ear/Nose Intact, Hearing Normal, Oropharynx Clear/Moist, Dentition Intact, Facial Symmetry, Neck Supple, Trachea Midline, No JVD and No Thyromegaly
Respiratory: Clear, Normal Excursion and Nonlabored Respirations
Cardiac: S1/S2, Regular Rate/Rhythm and No Edema
Breast: N/A
Abdomen: Soft, Nontender, Nondistended, Normal Bowel Sounds and No Hepatosplenomegaly
Rectal: Deferred by Provider
Genito-urinary: No Costovertebral Tender
Musculoskeletal: No Clubbing, No Cyanosis and No Edema
Skin: No Rash, Warm, Dry, No Clubbing, No Cyanosis, Normal Turgor and No Bruising
Neuro: Nonfocal/Grossly Intact
Hematologic/Lymphatic: No Cervical Lymphadenopathy
Psych: Mood/afflect pleasant, Insight/judgement good and Appropriate
Data Reviewed
-
Radiology: Image Personally Visualized and interpreted (clear CXR)
CT Scan: Report Reviewed by me (here are small bilateral low-attenuation renal lesions only the largest of which can be confirmed as simple cysts except for a 1.9 cm anterior lower pole left renal lesion which demonstrates approximately 35
Hounsfield unit density either a proteinaceous cyst or low attenuation solid mass, cannot be)
Assessment/Plan
-
Assessment:
CALVIN on CKD
vomiting
constipation
HTN
renal lesion
Plan:
- baseline Cr appears to be around 1-1.4, most recently at 2.3
- follows with Dr. Meza for nephrology care as an outpatient
- UA notable for 3+ albumin, some RBCs and glucose/ketones
- obtain UPCR, renal ultrasound
- encourage PO fluids, patient appears euvolemic at this time
- most likely to be ATN/JOAN based on history
- please trend i/os and kidney function
She has no urgent indications for dialysis at this time.
[2024-02-28 15:12] VITALS: BP 113/48
[2024-02-28] MEDS: LIPITOR 10 MG PO (18:07)
[2024-02-28] MEDS: ASPIR LOW (ENTERIC COATED) 81 MG PO (18:07)
[2024-02-28] MEDS: HEPARIN 5000 UNITS SC (20:14)
[2024-02-28 21:06] LABS: Urine Protein 11 mg/dl
[2024-02-28 23:13] VITALS: BP 124/58
[2024-02-28] MEDS: ATIVAN 1 MG PO (23:18)
[2024-02-29] MEDS: TYLENOL 650 MG PO (02:59)
[2024-02-29 05:14] VITALS: BMI 29.3
[2024-02-29] MEDS: SYNTHROID 100 MCG PO (05:15)
[2024-02-29 07:00] VITALS: BP 139/60
[2024-02-29] MEDS: VISBIOME 1 CAP PO (08:13)
[2024-02-29] MEDS: VITAMIN D3 (cholecalciferol) 25 MCG PO (08:13)
[2024-02-29] MEDS: CATAPRES 0.3 MG PO (08:13)
[2024-02-29] MEDS: NSS (PRESERVATIVE FREE) 10 ML IV (08:14)
[2024-02-29] MEDS: FOLVITE 0.4 MG PO (08:14)
[2024-02-29] MEDS: PROTONIX IV 40 MG IV (08:14)
[2024-02-29] MEDS: HEPARIN 5000 UNITS SC (08:14)
[2024-02-29] MEDS: HYDROPHOR 1 APPLIC TOPICAL (08:15)
[2024-02-29 10:15] LABS: Blood Urea Nitrogen 30 mg/dl (7-17); Calcium 9.4 mg/dl (8.4-10.2); Carbon Dioxide 23 mmol/L (22-30); Chloride 109 mmol/L (98-107); Estimated Creatinine Clearance 30 ml/min; Glucose 111 mg/dl (70-99); Magnesium 1.9 mg/dl (1.6-2.3); Potassium 3.5 mmol/L (3.5-5.1); Sodium 139 mmol/L (135-145); eGFR 37.33
--- NOTE | 2024-02-29 10:41 | W.PN.HOSP.TC ---
Today's Communication/Plan
-
OK for DC today
Assessment / Plan
Assessment / Plan
Ms. Carmen Centeno is a 83 yo woman with hx HTN/HLD, thyroid Ca, Cdiff, Diverticulitis, Hypothyroidism, Post-Polio Syndrome with LLE weakness, LLE Lymphedema, Anxiety/Depression presents to ER with complaint of N/V/abdominal pain. She had
witnessed coffee ground emesis.
Abdomen/Pelvis CT
IMPRESSION:
Markedly limited study as a result of several factors including lack of oral contrast, beam hardening artifact from the patient's left upper extremity and patient motion artifact.
No intestinal obstruction, findings to suggest bilateral obstructive uropathy or free air.
Urinary bladder significantly limited by beam hardening artifact from right hip arthroplasty.
Small bilateral low-attenuation renal lesions only the larger of which can be confirmed as simple cysts. 1.9 cm slightly low attenuation left renal lesion either a complex/proteinaceous cyst or low attenuation solid mass, cannot be differentiated on
the basis of this study.
Small pericardial effusion versus pericardial thickening.
N/V/Abdominal Pain
- Pt presents with 24 hours significant abdominal discomfort and vomiting which is now resolved
- CT without obstruction or perforation
- LFTs largely wnl. Lipase wnl
- UA wnl, patient also complained of urinary incontinence that is now resolved
CALVIN
-creatinine 1.1, increased to 2.3. likely component ATN or contrast induced nephropathy
-urine studies with urine sodium 118
-renal function back to near baseline this morning
-OK for DC
-will continue to hold Losartan at DC, patient to monitor BP at home
Constipation seen on CT
-chronic issue for patient
she takes milk of magnesia at home and prefers to only treat herself at home
Essential HTN
-was hypertensive in ER then hypotensive on 02/27 - improved with fluids
-resume home meds cautiously - patient will monitor BP at home
Leukocytosis
- WBC 12.5K. Likely reactive from N/V/Pain
- CT a/p without acute findings
- UA without evidence of infection
- resolved without antibiotics
Renal Lesion
- CT reviewed: Small bilateral low-attenuation renal lesions only the larger of which can be confirmed as simple cysts. 1.9 cm slightly low attenuation left renal lesion either a complex/proteinaceous cyst or low attenuation solid mass, cannot be
differentiated on the basis of this study.
- discussed with radiology - can obtain CT with/without contrast using renal mass protocol if patient refuses MRI (MRI with/without contrast most helpful) - to be done as outpatient
LLE Lymphedema
- No obvious concern for infection at this time
- Continue ranjit-wrap
- wound care consult
Post-Polio Syndrome
Chronic LLE Weakness
- Chronic Gait dysfunction and LLE weakness
- Has refused half-way facility in past
- Uses walker at home
-PT - HH
Hypothyroidism - Check TSH. Continue home synthroid.
Anxiety/Depression
- Continue home ativan prn
Diet: LRD
DVT Ppx: Lovenox
Code Status: Full Code
51 minutes spent on patient evaluation, medical decision making, coordination of care
Anticipated Discharge: Today
Subjective/Interval History
-
Date of Service: February 29, 2024
feeling better
no vomiting
eating and drinking OK
wants to go home
Objective Data
-
Labs:
Laboratory Results
02/29/24
08:04
Sodium 139
Potassium 3.5
Chloride 109 H
Carbon Dioxide 23
BUN 30 H
Creatinine 1.4 H
Glucose 111 H
Calcium 9.4
Vital Signs:
Vital Signs
Temp Pulse Resp BP Pulse Ox
98.0 F 57 17 139/60 93
02/29/24 07:00 02/29/24 08:13 02/29/24 07:00 02/29/24 08:13 02/29/24 07:00
I&O
02/28/24 02/29/24 03/01/24
06:59 06:59 06:59
Intake Total 610 / 610 780 / 780
Output Total 650 / 650
Balance 610 / 610 130 / 130
Review of Systems
-
History Source: Patient
All other systems: Reviewed and negative
Physical Exam
-
General: No Apparent Distress
HEENT: PERRLA
Respiratory: Clear to Auscultation; Negative Wheezes
GI: Soft and Nontender
Musculoskeletal: No Edema
Skin: Warm and Dry; Negative Rash
Neuro: AO x 3
Psych: Calm
Data Reviewed
-
Diagnostic Radiology: Report Reviewed by me
Labs: Labs Reviewed by me
--- NOTE | 2024-02-29 10:55 | W.DS.TRANS ---
DC Summary - Third Officer
-
Discharge Instructions:
Discharge Diagnosis/Procedures nausea/vomiting secondary to gastroenteritis,
acute kidney injury
Diet Low Residue
Activity As tolerated
Driving Restrictions As prior to admission
Bathing Restrictions None
Blood Work BMP in one week to be collected by home health
Other Services VN,PT
Instructions:
Stand-Alone Forms:
Changes to Home Medications: Yes
Discharge Medications:
DC Medications w/original date entered in [facility]
lovastatin 40 mg tablet 40 mg PO QPM High cholesterol 10/03/13
carvedilol 25 mg tablet (Coreg) 25 mg PO BID Blood pressure 05/30/20
clonidine HCl 0.3 mg tablet 0.3 mg PO BID Blood Pressure 05/30/20
hydralazine 10 mg tablet 10 mg PO BID Blood pressure 05/30/20
levothyroxine 100 mcg tablet 100 mcg PO DAILY AT 0700 Thyroid 04/09/21
losartan 100 mg tablet 100 mg PO DAILY Blood Pressure 07/29/23
acetaminophen 325 mg tablet (Tylenol) 650 mg PO Q4HPRN PRN mild pain 12/19/23
cholecalciferol (vitamin D3) 25 mcg (1,000 unit) tablet (Vitamin D3) 25 mcg PO DAILY Supplement 12/19/23
docusate sodium 100 mg capsule (Colace) 100 mg PO BIDPRN PRN constipation 12/19/23
magnesium hydroxide 400 mg/5 mL oral suspension (Milk of Magnesia) 2,400 mg PO DAILYPRN PRN constipation 12/19/23
lorazepam 1 mg tablet 1 mg PO HSPRN PRN SLEEP OR ANXIETY 12/20/23
Home Medication Changes
Continue home bowel regimen with milk of magnesia as needed. Consider taking Miralax and colace daily to help with constipation.
Hold Losartan. Hold Hydralazine. Measure blood pressure 90 minutes after you take your blood pressure medications (Clonidine and Coreg). If your systolic blood pressure is over 140 then resume Hydralazine. If you remain hypertensive then resume
Losartan. Bring blood pressure recordings with your to your PCP.
Pending Results: No
--- NOTE | 2024-02-29 11:13 | CM ---
Case management following for discharge planning
Pt for discharge today
Son will transport home
Accepted by [facility] for home care needs
Discussed IMM
Plan - home with [facility]
f - [phone]
[2024-02-29 11:50] VITALS: BP 125/58
[2024-02-29] MEDS: COREG 12.5 MG PO (11:52)
--- NOTE | 2024-02-29 14:11 | W.DCSUMMARY ---
Discharge Summary
Discharge Data
Date of Admission: 02/28/24
Date of Discharge: 02/29/24
-
Pending Results: No
Hospital Course
Discharging Physician : Dr. Judie Leahy
Disposition : Home
Principal Discharge diagnosis : Gastroenteritis, Acute Kidney Injury
Hospital Course :
Ms. Carmen Centeno is a 83 yo woman with hx HTN/HLD, thyroid Ca, Cdiff, Diverticulitis, Hypothyroidism, Post-Polio Syndrome with LLE weakness, LLE Lymphedema, Anxiety/Depression presents to ER with complaint of N/V/abdominal pain. CT without
finding of obstruction. She remained persistently nauseated despite multiple anti-emetics. She was admitted to medicine and given IV hydration.
The following morning nausea/vomiting had completely resolved. History suggestive of gastroenteritis. She had no abdominal pain (has chronic constipation and wanted to wait until she was home to take her usual bowel regimen). She is tolerating a
regular diet prior to discharge.
Hospital course complicated by worsening CALVIN despite IVF (peaked at 2.3). Likely had some component of contrast induced nephropathy in addition to pre-renal etiology. No hydronephrosis on US. Creatinine improving close to baseline on day of
discharge (1.4).
Patient presented hypertensive in setting of distress from nausea. She was maintained on her home BP regimen but then had an episode of hypotension which was responsive to IVF. On discharge she is told to continue her clonidine and Coreg. She is
told to hold Hydralazine and Losartan and only resume based on what outpatient blood pressures and follow up labs are. She checks her BP at home and is directed to do so daily 90 minutes after home medications. She will need a repeat BMP ordered
by her PCP at next appointment (within one week).
Time spent on discharge was 35 minutes.
Important imaging findings :
Abdomen/Pelvis CT 02/26/24
IMPRESSION:
Markedly limited study as a result of several factors including lack of oral contrast, beam hardening artifact from the patient's left upper extremity and patient motion artifact.
No intestinal obstruction, findings to suggest bilateral obstructive uropathy or free air.
Urinary bladder significantly limited by beam hardening artifact from right hip arthroplasty.
Small bilateral low-attenuation renal lesions only the larger of which can be confirmed as simple cysts. 1.9 cm slightly low attenuation left renal lesion either a complex/proteinaceous cyst or low attenuation solid mass, cannot be differentiated on
the basis of this study.
Small pericardial effusion versus pericardial thickening.
Procedure findings :
Discharge Plan
-
Patient Disposition: Home (Routine Discharge)
Discharge Diagnosis/Procedures: nausea/vomiting secondary to gastroenteritis, acute kidney injury
Diet: Low Residue
Activity: As tolerated
Driving Restrictions: As prior to admission
Bathing Restrictions: None
Blood Work: BMP in one week to be collected by home health
Other Services: VN and PT
Activity Restrictions/Additional Instructions:
Wound Care Instructions
LLE-clean with saline or water, Aquaphor ointment to dry skin, adaptic, abd pad to posterior calf. L knee high Praveen wrap from toes to just below the knee, change daily and prn skin care/skin checks. Re-wrap Praveen every am.
Or resume prior compression therapy L knee high as ordered by your wound health careers instructor.
Follow up at wound care center call for an appointment.
Referrals:
UNKNOWN - PT DOES,NOT KNOW [Family Provider] - in less than 1 week
Additional Discharge Medication Instructions: Continue home bowel regimen with milk of magnesia as needed. Consider taking Miralax and colace daily to help with constipation.
Hold Losartan. Hold Hydralazine. Measure blood pressure 90 minutes after you take your blood pressure medications (Clonidine and Coreg). If your systolic blood pressure is over 140 then resume Hydralazine. If you remain hypertensive then resume
Losartan. Bring blood pressure recordings with your to your PCP.
Prescriptions:
Continued
lovastatin 40 MG tablet
40 mg PO QPM
carvedilol [Coreg] 25 MG tablet
25 mg PO BID
clonidine HCl 0.3 MG tablet
0.3 mg PO BID
levothyroxine 100 MCG tablet
100 mcg PO DAILY AT 0700
acetaminophen [Tylenol] 325 mg Tablet
650 mg PO Q4HPRN PRN (Reason: mild pain)
magnesium hydroxide [Milk of Magnesia] 400 mg/5 mL Suspension
2,400 mg PO DAILYPRN PRN (Reason: constipation)
docusate sodium [Colace] 100 mg Capsule
100 mg PO BIDPRN PRN (Reason: constipation)
cholecalciferol (vitamin D3) [Vitamin D3] 25 mcg (1,000 unit) Tablet
25 mcg PO DAILY
lorazepam 1 mg tablet
1 mg PO HSPRN PRN (Reason: SLEEP OR ANXIETY)
Held
hydralazine 10 MG tablet
10 mg PO BID
Hold Instructions: Resume on 03/07/24. resume if systolic blood pressure > 140 at home after you take your other blood pressure medications
losartan 100 mg tablet
100 mg PO DAILY
Hold Instructions: Resume on 03/07/24.
Discharge Orders:
Discharge Patient (As Directed); Ordered 02/29/24
Ordered By: Judie Leahy
Discharge Date and Time
Discharge Date/Time: 02/29/24 12:29
Print Language: FIJIAN
== END 2024-02-29 12:29 | disposition home health service (06) | DRG 392 ==
LOC: 3 WEST ACU 12:16
PROVIDERS: ADMITTING PHYSICIAN Internal Medicine; ATTENDING PHYSICIAN Student in an Organized Health Care Education/Training Program; CONSULT PHYSICIAN Student in an Organized Health Care Education/Training Program; EMERGENCY PHYSICIAN Emergency Medicine
DX: K52.9 Noninfective gastroenteritis and colitis, unspecified (principal); N17.9 Acute kidney failure, unspecified; I12.9 Hypertensive chronic kidney disease with stage 1 through stage 4 chronic kidney disease, or unspecified chronic kidney disease; N18.9 Chronic kidney disease, unspecified; G14 Postpolio syndrome; E89.0 Postprocedural hypothyroidism; F41.0 Panic disorder [episodic paroxysmal anxiety]; F32.A Depression, unspecified; N14.11 Contrast-induced nephropathy; Z11.52 Encounter for screening for COVID-19
CPT/HCPCS: 71046; 74177; 76770; 80048; 80053; 81003; 81015; 82570; 83690; 83735; 84156; 84300; 84439; 84443; 85025; 87811; 93005; 96361; 96374; 96375; 96376; 97116; 97163; 97167; 97530; 99285; Q9967

== ENCOUNTER → 2025-01-02 11:28 | Outpatient (REF) | payer OTHER, SELFPAY ==
[2025-01-02 12:17] LABS: % Basophils 0.7 % (0-2); % Eosinophils 4.2 % (0-6); % Immature Granulocytes 0.5 % (0-0.5); % Lymphocytes 23.7 % (20.5-51.1); % Monocytes 9.1 % (1.7-9.3); % Neutrophils 61.8 % (42.2-75.2); Absolute Eosinophils 0.3 10^3/uL (0-0.7); Absolute Lymphocytes 1.4 10^3/uL (1.2-3.4); Absolute Monocytes 0.5 10^3/uL (0.1-0.6); Absolute Neutrophils 3.7 10^3/uL (1.4-6.5); Hematocrit 25.8 % (37.0-47.0); Hemoglobin 8.1 g/dL (12.0-16.0); Mean Corp Hgb Conc. 31.4 g/dL (33.0-37.0); Nucleated Red Blood Cells % 0 %; Platelet Count 219 10^3/uL (130-400)
[2025-01-02 13:00] LABS: Blood Urea Nitrogen 15 mg/dl (7-17); Calcium 8.8 mg/dl (8.4-10.2); Carbon Dioxide 24 mmol/L (22-30); Chloride 112 mmol/L (98-107); Glucose 96 mg/dl (70-99); HDL Cholesterol 43 mg/dl; LDL Cholesterol, Calculated 52 mg/dl; Potassium 4.5 mmol/L (3.5-5.1); Sodium 142 mmol/L (135-145); Total Cholesterol 112 mg/dl (50-199); Triglyceride 89 mg/dl (10-149); Very Low Density Lipoprotein 17 mg/dl (0-30); eGFR 49.55
[2025-01-02 13:01] LABS: Glycohemoglobin (HgbA1c) 5.6 % (4.0-5.6)
[2025-01-02 13:13] LABS: Vitamin D, 25-OH*** 28.8 ng/mL (30-80)
[2025-01-02 13:26] LABS: TSH Reflex To Free T4 1.63 uIU/ml (0.47-4.68)
[2025-01-02 13:46] LABS: Vitamin B12 < 159 pg/ml (239-931)
== END ==
LOC: OLABSOL 11:28
PROVIDERS: ATTENDING PHYSICIAN Nurse Practitioner Adult Health
DX: E78.5 Hyperlipidemia, unspecified (principal); D11.9 Benign neoplasm of major salivary gland, unspecified; E55.9 Vitamin D deficiency, unspecified; D51.9 Vitamin B12 deficiency anemia, unspecified; D64.9 Anemia, unspecified; R94.4 Abnormal results of kidney function studies; E03.9 Hypothyroidism, unspecified
CPT/HCPCS: 36415; 80048; 80061; 82306; 82607; 83036; 84443; 85025

== ENCOUNTER 2025-01-21 10:01 | Emergency (ER) | payer OTHER, SELFPAY ==
[2025-01-21 10:05] VITALS: BP 149/73; BMI 32.0
--- NOTE | 2025-01-21 10:51 | ED.MUSCINJ ---
HPI-Injury
General
Chief Complaint: Fall
Source: patient
Time Seen by Provider: 01/21/25 10:46
History of Present Illness-Injury
Initial Injury comments:
84-year-old female not anticoagulated with history of polio with dysfunctional left leg presents with left hip and thigh pain after a fall. She was transferring from chair to her chair and fell and landed on her buttock and complains of left hip
and thigh pain. She did not hit her head. She lives in assisted living. No other complaints at this time
Past History
Past History
ED Past Medical History: Cancer (thyroid CA), HTN, Hypercholesterolemia, Renal failure (Renal insufficiency), Psychiatric (Anxiety, Panic disorder) and Other (Polio, DVT, anemia, Chronic back pain., C-diff, lymphedema, Bowel obstruction,
Diverticulitis, Cellulitis, )
ED Past Surgical History: Appendectomy, Cholecystectomy, Gynecological ( total Hysterectomy), Orthopedic (Right total knee replacement) and Other (Thyroidectomy)
Social History
Tobacco: Non-smoker
Alcohol: None
Drug: None
Personal:
Living: with family
Employment: Not employed
Family History
Family History: Hypertension
Phy Exam
Physical Exam
Physical Exam:
General: Well-appearing female no acute respiratory distress
HEENT normocephalic atraumatic
Musculoskeletal exam: Patient is tender over the anterior and lateral aspect of the left hip and mid thigh. No significant deformity to the leg. There is lymphedema to the left leg
Neurologic: Alert and oriented conversing
Injury Course
Orders/Labs/Results
Orders:
Orders
01/21/25 10:50
CR Femur - Left Min 2 Vw Urgent
Comment:
Reason For Exam: fall, pain
CR Pelvis - 1 Or 2 Views Urgent
Comment:
Reason For Exam: fall. left hip pain
MDM/Problems Addressed
Differential Diagnosis Includes:
Fall with left hip and thigh pain. X-rays pelvis and femur pending
*Pulse Oximetry
SaO2: 97
Oxygen Mode of Delivery: Room air
Patient hypoxic: no
*Critical Care Note
Total Time (30-74mins, 75-104mins- exclusive of procedures): Not Applicable
Update Note
Update Note:
X-ray of the pelvis and femur negative for acute finding. Patient reassured stable for discharge back to her assisted living
ED Attending Note
-
Portions of this chart may have been created with voice recognition software.� Occasional wrong word or��sound alike� substitutions may have occurred due to the inherent limitations of voice recognition software.
Discharge Plan
Departure
Patient Disposition: Home (Routine Discharge)
Date of Disposition: 01/21/25
Time of Disposition: 13:46
Patient with high blood pressure during this ER visit?: No
Discharge Problem:
Fall
Prescriptions:
No Action
lovastatin 40 MG tablet
40 mg PO QPM
hydralazine 10 MG tablet
10 mg PO BID
carvedilol [Coreg] 25 MG tablet
25 mg PO BID
clonidine HCl 0.3 MG tablet
0.3 mg PO BID
levothyroxine 100 MCG tablet
100 mcg PO DAILY AT 0700
losartan 100 mg tablet
100 mg PO DAILY
acetaminophen [Tylenol] 325 mg Tablet
650 mg PO Q4HPRN PRN (Reason: mild pain)
magnesium hydroxide [Milk of Magnesia] 400 mg/5 mL Suspension
2,400 mg PO DAILYPRN PRN (Reason: constipation)
docusate sodium [Colace] 100 mg Capsule
100 mg PO BIDPRN PRN (Reason: constipation)
cholecalciferol (vitamin D3) [Vitamin D3] 25 mcg (1,000 unit) Tablet
25 mcg PO DAILY
lorazepam 1 mg tablet
1 mg PO HSPRN PRN (Reason: SLEEP OR ANXIETY)
Referrals:
UNKNOWN - PT NOT,INTERVIEWE [Family Provider]
Interventions
Interventions:
*Risk Screen - Suicide Last Done: 01/21/25 10:05
*General Assessment Last Done: 01/21/25 10:05
*Neglect/Abuse Screening Last Done: 01/21/25 10:05
ED-Musculoskeletal Assessment Last Done: 01/21/25 10:28
ED- Neurological Assessment Last Done: 01/21/25 10:28
ED-Skin Assessment Last Done: 01/21/25 10:28
Discharge Date and Time
Print Language: ITALIAN
[2025-01-21] MEDS: TORADOL 15 MG IM (14:07)
[2025-01-21 14:19] VITALS: BP 140/74
== END 2025-01-21 14:21 | disposition home or self-care (01) ==
LOC: EMR 10:01
PROVIDERS: EMERGENCY PHYSICIAN Emergency Medicine
DX: M25.552 Pain in left hip (principal); W19.XXXA Unspecified fall, initial encounter
CPT/HCPCS: 99284; 96372; 72170; 73552

== ENCOUNTER → 2025-04-16 08:00 | Outpatient (REF) | payer OTHER, SELFPAY ==
[2025-04-16 18:44] LABS: Urine Character Clear (Clear)
== END ==
LOC: OLABSOL 08:00
PROVIDERS: ATTENDING PHYSICIAN Nurse Practitioner Adult Health
DX: N39.0 Urinary tract infection, site not specified (principal)
CPT/HCPCS: 81003; 87086

== ENCOUNTER → 2025-06-28 11:25 | Outpatient (REF) | payer OTHER, SELFPAY ==
[2025-06-28 12:03] LABS: Hematocrit 27.1 % (37.0-47.0); Hemoglobin 8.6 g/dL (12.0-16.0); Mean Corp Hgb Conc. 31.7 g/dL (33.0-37.0); Mean Corpuscular Volume 78.8 fL (81.0-99.0); Nucleated Red Blood Cells % 0 %; Platelet Count 213 10^3/uL (130-400); Red Cell Dist. Width 19.5 % (11.5-14.5)
[2025-06-28 12:06] LABS: ALT (SGPT) < 10 U/L (0-35); AST (SGOT) 18 U/L (14-36); Albumin 3.6 g/dl (3.5-5.0); Alkaline Phosphatase 74 U/L (38-126); Blood Urea Nitrogen 15 mg/dl (7-17); Calcium 9.1 mg/dl (8.4-10.2); Carbon Dioxide 24 mmol/L (22-30); Chloride 110 mmol/L (98-107); Glucose 103 mg/dl (70-99); Potassium 4.8 mmol/L (3.5-5.1); Sodium 137 mmol/L (135-145); Total Protein 6.1 g/dl (6.3-8.2); eGFR 55.21
== END ==
LOC: OLABSOL 11:25
PROVIDERS: ATTENDING PHYSICIAN Nurse Practitioner Adult Health
DX: D64.9 Anemia, unspecified (principal); R79.89 Other specified abnormal findings of blood chemistry
CPT/HCPCS: 36415; 80053; 85025